=== PATIENT | male | born 2000 | race Caucasian/White ===

== ENCOUNTER 2021-07-24 09:34 | Outpatient (RCR) | payer OTHER, SELFPAY ==
--- NOTE | 2021-07-24 09:00 | BH.SGPN.GN ---
Behaviors/Verbalizations/Mental Status: []Pt alert and oriented, neatly dressed and groomed. Eye contact good. Motor activity appropriate. Speech within normal limits. Affect flat, mood depressed. Thoughts linear, logical, no signs of hallucinations or delusions. Pt's first day of PHP tx so pt completed the CSSR-S this morning. Client Response/Progress/Benefit: P[]Pt responded well to session, attentive, but quiet. Pt's first day of PHP tx and group offered pt supportive statements and encouragement. Pt reports feeling nervous this morning as it is his first experience with group. Pt shared he wants to work on dealing with depression and learning coping skills. Pt declined to share further, but appeared to benefit from meeting peers and learning more about the group setup. Pt will continue PHP tx to prevent decompensation, gain healthy coping skills, and maintain safety. Narrative Note: []
--- NOTE | 2021-07-24 10:10 | BH.SGPN.GN ---
Behaviors/Verbalizations/Mental Status: []Client alert and oriented, casually dressed and groomed. Eye contact fair to good. Motor activity appropriate. Speech within normal limits, quiet with limited input provided. Affect constricted, mood depressed, anxious. Thoughts linear, logical, no signs of hallucinations or delusions. Client Response/Progress/Benefit: []Client first day in PHP tx. Attentive, though remained passively engaged, taking notes and completed worksheet. Connected with discussion on crisis and how coping with external crises by using unhealthy coping skills could result in a personal crisis. Group reflected on the importance of having awareness of personal warning signs to prevent reaching crisis point. Group identified potential warning signs for crisis and client completed the personal warning signs worksheet. Client identified personal crisis warning signs to include: negative thoughts, apathy, and loss of interest. Client benefited by increasing awareness of what leads to crisis and personal warning signs. Client will continue PHP tx to prevent decompensation and maintain safety, increase understanding and use of healthy skills, as well as improve daily functioning. Narrative Note: []
--- NOTE | 2021-07-24 10:51 | BH.COMM ---
Communication Note - Communication with Client Communication Note: Pt completed initial paperwork and [place] Suicide Screener which he scored moderately severe. No active SI, plan, or intent. Protective factors. Future-oriented. Case discussed with Dr. Raya with plan to admit to [facility] with dx of F33.2
--- NOTE | 2021-07-24 11:10 | BH.SGPN.GN ---
Behaviors/Verbalizations/Mental Status: []Client alert and oriented, casually dressed and groomed. Eye contact fair. Motor activity restless. Speech within normal limits. Affect flat, mood depressed. Thoughts linear, logical, no signs of hallucinations or delusions. Client Response/Progress/Benefit: []Client mostly quiet during session, did show some engagement when in small groups. Client listened attentively to others and accepted feedback on strategies to add to his crisis plan. Connected as fellow participants discussed the importance of identifying and addressing personal warning signs. Client identified warning signs for crisis and gained further awareness of earliest warning signs. Client created a crisis action plan to help client better manage warning signs for crisis. Client?s action plan for loss of interest includes: pushing self to do things, stick to a routine, and try something new. Client appeared to benefit from creating a crisis action plan and increasing self-awareness. Client's first day in PHP. Client to continue PHP tx to maintain safety, improve daily functioning and prevent decompensation.
--- NOTE | 2021-07-24 11:40 | BH.MTP_ITS ---
Master Treatment Plan - Patient Information Program Physician:: Dr. Lia Mason Primary Therapist:: Latrice COTE - Psychiatric Diagnoses Psychiatric Diagnoses:: Major depressive disorder, recurrent, severe without psychosis; History of THC use disorder Diagnosis Code(s):: F 33.2 - Estimated LOS Estimated LOS (in weeks):: 1 Problem/Goal #1 - Problem/Goal #1 Stated Goal:: Pt will reduce suicidal ideations and learn how to manage depressive symptoms in healthy ways. Description of Barriers: Pt reports long-standing history of suicidal ideations and negative thoughts about himself. Pt has never done counseling in the past and medications have not been very effective for him. Pt does not currently find much alexi in anything. Functional Impact: Pt is a 21-year-old male with a history of MDD and cannabis use disorder. Pt referred to IOP by Amelie Odell and his mother following an episode of suicidal ideations with a plan to shoot himself in [place]. Pt denies any previous history of attempts, but reports having suicidal ideations since high school. Pt reports symptoms have been worsening over the past few months, but about six weeks ago, pt told his parents his medications were not working. Pt reports feeling like he is going through the motions and not finding any alexi in life. Pt endorses a depressed mood, anhedonia, hopelessness, worthlessness, and lack of energy. 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 Pt also endorses ruminations and feels like he is not good enough for his relationships. Goal Relevant Strengths/Supports: Pt has a very supportive family and girlfriend. Pt has no access to weapons and his parents removed all the guns from the home. Pt has outpatient psychiatry. - Objectives Objective #1 Stated Objective: Work with pt to develop a ?crisis plan? which includes emergency telephone numbers, 3-4 coping strategies for emotional distress, lists of supports, and motivations to live. Interventions: Therapist will provide list of crisis phone numbers. Therapist will work with client to identify motivations to live, warning signs, and effective coping strategies and steps to take in time of mental health crisis. Discharge Criteria: pt will have achieved this goal once pt completes safety p alli and is able to utilize coping and thought replacement strategies. Target Date: 08/01/21 Review Date: 08/01/21 Status: open Problem/Goal #2 - Problem/Goal #2 Stated Goal:: Reduce intensity and duration of anxiety and ruminations to improve overall functioning. Description of Barriers: Pt reports long-standing history of suicidal ideations and negative thoughts about himself. Pt has never done counseling in the past and medications have not been very effective for him. Pt does not currently find much alexi in anything. Functional Impact: Pt is a 21-year-old male with a history of MDD and cannabis use disorder. Pt referred to [facility] by Amelie Odell and his mother following an episode of suicidal ideations with a plan to shoot himself in his sleeping bag [place]. Pt denies any previous history of attempts, but reports having suicidal ideations since high school. Pt reports symptoms have been worsening over the past few months, but about six weeks ago, pt told his parents his medications were not working. Pt reports feeling like he is going through the motions and not finding any alexi in life. Pt endorses a depressed mood, anhedonia, hopelessness, worthlessness, and lack of energy. 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 Pt also endorses ruminations and feels like he is not good enough for his relationships. Goal Relevant Strengths/Supports: Pt has a very supportive family and girlfriend. Pt has no access to weapons and his parents removed all the guns from the home. Pt has outpatient psychiatry. - Objectives Objective #1 Stated Objective: pt will identify 2-3 cognitive distortions that lead to rumination and learn 2-3 ways to manage these thoughts to better manage anxiety Interventions: Therapist will provide education on the most common cognitive distortions and teach pt the connection between thoughts, emotions, and feelings. Therapist will assist pt in identifying, challenging, and replacing dysfunctional thoughts with positive, more realistic thoughts. Therapist will use CBT and DBT techniques to help pt gain awareness of thinking errors and learn how to more effectively handle negative thoughts. Therapist will also use self-compassion to help pt set more realistic expectations for himself. Discharge Criteria: Pt will have accomplished this goal when can identify at least 2 cognitive distortions and at least 2 coping skills to manage negative thoughts. Target Date: 08/01/21 Review Date: 08/01/21 Status: open
--- NOTE | 2021-07-24 11:41 | BH.PSA_ITS ---
Source of Information - Presenting Problems/Circumstances Problems, Referral Source, Mental Status, Client: Pt is a 21-year-old male with a history of MDD and cannabis use disorder. Pt referred to [facility] by [place] [id number] and his mother following an episode of suicidal ideations with a plan to shoot himself [place]. Pt denies any previous history of attempts, but reports having suicidal ideations since high school. Pt reports symptoms have been worsening over the past few months, but about six weeks ago, pt told his parents his medications were not working. Pt reports feeling like he is going through the motions and not finding any alexi in life. Pt endorses a depressed mood, anhedonia, hopelessness, worthlessness, and lack of energy. 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 Pt also endorses ruminations and fe els like he is not good enough for his relationships. Psychiatric Presentation - Psych Issues & Need for Admission Psychiatric Issues:: Major depressive disorder, recurrent, severe without psychosis; History of THC use disorder Past Psychiatric History - Treatment Hx Treatment History: No psychiatric admissions ever. No history of suicide attempts. No counseling ever but he has a psych PA who gives him his current meds. Pt reports he was first depressed in ninth grade but started feeling bad about himself in second grade after being diagnosed with dyslexia. He first took medications at age 19. He took Lexapro for 1 year but gained a lot of weight on it so stopped it. In April 2020 he went to [place] for 1 9 was given Prozac at 20 mg which was then increased eventually to 60 mg. It helped at first but then stopped. Pt does not like like taking medication per his report. First hospitalization:: n/a Most recent hospitalization:: n/a Medication Trials:: Yes - Lexapro- weight gain ECT Therapy:: No Age of first mental health symptoms: See tx history Describe (age, circumstance, etc) any past hospitalizations: n/a Current providers for mental health treatment (counselor, psychiatrist, classification case manager, etc.): Nikole Cordero (psych PA) at [id number]. No outpatient counselor at this time Development & Family of Origin - Childhood Significant Childhood Events: Pt was diagnosed with dyslexia when he was in 2nd grade. Pt reports his view about himself changed and he became depressed and negative towards himself. - Family Who currently lives in your home?: Pt lives with his parents Describe family composition:: Pt was born and raised in [place]. He describes his childhood as very good and loving. He denies any physical, verbal or sexual abuse ever. He has 2 older sisters. Pt is the youngest in the family and has a sister 3 years older than him and his sister 5 years older than him and he is close to the younger sister. - Family History Family Hx of Psychiatric or AOD Problems: Father has anxiety. Mother and one of his sisters have depression and anxiety. A second sister has OCD. There were 2 completed suicides in the family which were a maternal great uncle and another relative he is not sure the relation. His maternal grandfather was alcoholic but otherwise no substance issues in the family. Ethnicity - Culture Do you identify yourself with any particular cultural, ethnic background, or community?: No - Sexuality Sexual Orientation: Heterosexual Mental Status - Memory Recent Memory: Good Remote Memory: Good - Concentration Concentration: Good - Eye Contact Eye Contact: Good - Speech Speech: Soft - Thought Process Thought Process: Ruminations Insight: Fair Judgment: Fair Behavior: Anxious - Orientation Orientation: Time, Person, Place, Situation - Appearance Appearance: Appropriate - Mood Mood: Depressed - Affect Affect: Flattened Suicide Assessment - Suicidal Ideation Have you ever felt like hurting yourself?: Yes Please explain:: See presenting problem and psych evaluation Were you using ETOH/drugs at the time?: No Suicidal Intentional Rating Scale (SIRS): Current suicidal thoughts/No plan/Contracts for safety - He has passive thoughts that he would not care if he . In addition he has daily, fleeting suicidal ideation which occasionally last longer than fleeting according to the patient. He describes it as passive to almost active. Safety plan has been completed. Physician Notification: If Active suicidal thoughts/Will not contract for safety is checked, contact physician and document in the Physician Notification section below. Violent Behavior/Abuse History - Homicidal Ideation Do you have any homicidal thoughts? If so, explain:: No Is there a known potential victim? If yes, who:: No - Abuse Have you ever been abused?: No - Life Events Are there any other significant life events?: Hardships - Pt not sure what he wants to do for a career or what he wants in life. - Safety Do you ever feel threatened in your home? If yes, describe:: No Adult Social History - Age 18 to Present Describe your current support system:: Pt has his mother and girlfriend for primary support. Substance Use - Substance Substance Use Type: Alcohol, Marijuana, Tobacco, Caffeine - Specific Drugs What specific drugs have you used?: Non-smoker. He vapes nicotine daily. He first used marijuana in eighth grade and used it almost daily since the end of high school until 10 days ago when he stopped using marijuana. He uses alcohol 1-2 times a month. No rehab ever. 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 Do you have any learning disabilities?: Yes - Pt diagnosed with dyslexia in 2nd grade. 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 If yes, describe:: No - Court Orders Have you had any past court orders for psychiatric treatment?: No Do you have a present court order for psychiatric treatment?: No Problem Checklist - Current Problem Areas Problem List: Nutritional/Eating pattern changes, Depressed mood/sad, Substance use, Sleep problems, Pertinent health issues - He takes omeprazole, 1 hypertension med, methyl B12 supplement, and an [id number] allergy antihistamine. High blood pressure, GERD, hayfever allergy, history of appendectomy and wisdom teeth., Additional psychosocial stressors Discharge Planning Needs - Anticipated Follow-Up Mental Health Center (Name/Phone Number):: [id number] Private Therapist/Psychiatrist:: Nikole Cordero (psych PA) Release of Information Signed:: Yes Outpatient Scheduler's Assessment - Client's Needs What are the client's strengths?: Pt has a very supportive family and girlfriend. Pt has no access to weapons and his parents removed all the guns from the home. Pt has outpatient psychiatry. Diagnoses - Diagnoses Diagnosis #1:: Major depressive disorder, recurrent, severe without psychosis Diagnosis #2:: History of THC use disorder Interpretive Summary - Interpretive Summary Interpretive Summary: Pt is a 21-year-old single male who was referred to the [facility] behavioral health IOP program by his mother and [id number]. Records were reviewed and long email from his mother was reviewed to obtain this history besides the interview with pt. Pt has a girlfriend of 2 years who is supportive of him. He currently lives with his parents and he gets along well with them. For primary support he says he is not a talker but he thinks his girlfriend and parents are supportive of him. Pt recently had a plan to [place] himself [place] the [place] after going on a hike and was revealed this to his girlfriend who then told his mother. Pt's mother approached him and he admitted to his mother that he was suicidal and had the above plan. Pt is on medications for depression but feels they stopped working about 6 weeks ago. Pt has a history of dyslexia which was diagnosed in second grade and he feels that since that time he has felt that he was done and has felt bad about himself. Pt currently works at [employer] and has worked there for 6 years. 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 However pt is unsure of exactly what he wants to do with his life and he feels this is the greatest stress on him currently. He enjoys hiking, remodeling a camper and doing things with his girlfriend, but pt feels like he is just ?existing? and not enjoying life. According to his mother he is always willing to help neighbors and even strangers when needed. He has poor self-esteem. Patient denies any history of self-harm and all weapons have been removed from the home. He is not exercising much but does lift weights sometimes. He endorses feeling down and sad. He endorses hopelessness, worthlessness, some guilt, and apathy. His appetite is okay and his sleep is about 6 to 8 hours a night. Energy level is low but concentration is reasonably okay. He is a worrier by nature and ruminates negatively about himself constantly. He has passive thoughts that he would not care if he . In addition, he has daily, fleeting suicidal ideation which occasionally last longer than fleeting according to pt. He describes it as passive to almost active. He denies homicidal ideation, hallucinations, delusions or symptoms of phi ever. He also denies panic attacks, OCD, eating disorder, trauma or PTSD. Family history of depression, anxiety, OCD, eating disorder, and alcoholism. Pt denies using marijuana currently, but pt does have a history of THC use disorder. Treatment Plan Recommendations - Recommendations Guidelines: Special needs identified to be included in the development of an individualized treatment plan regarding past psychiatric history and treatment, developmental events, family relationships/events/culture, past and/or current educational, occupational, social, and residential experience, and legal status. Recommendations:: Pt will start the partial hospitalization program at [facility] as the structure, support, education, individual therapy and group therapy will hopefully prevent worsening of pt's symptoms which might require hospitalization. pt felt safe during the interview and if it anytime he does not feel safe he will agrees to let us know or go to the emergency room. The risk, options, possible complications and side effects of the medications were discussed with the patient and he understands and accepts these. pt was encouraged to continue to exercise on a regular basis and to continue to avoid any drug use or marijuana use. A TSH and vitamin D were ordered as the patient feels his last blood work was a year ago or more. Pt will need outpatient counseling when pt finishes treatment at [facility].
--- NOTE | 2021-07-24 13:36 | BH.MDN ---
Multi-Disciplinary Note - Note 45-min Individual Time Started:: 12:00 Date: 07/24/21 Purpose of session/treatment goals addressed:: To gather information on client's current stressors, symptoms, triggers, and tx goals. Another goal was to build rapport and complete a safety plan. Eye Contact:: Fair Motor Activity:: Appropriate Appearance:: Neat Speech:: Soft Mood:: Depressed Affect:: Flat Thoughts:: Linear, Logical, No evidence of hallucinations/delusions noted Staff Interventions:: psychoeducation on: - depression and maintenance cycles, rapport building, strengths perspective, treatment planning, completed risk assessment / safety planning Client Response:: Pt responded well to session, open to meeting with therapist. Pt shared the first day went okay. Pt stated he has never been in therapy before, so he was not sure what to expect. Pt sees a outpatient psychiatrist at [place] [id number] and his medication was recently changed. Pt identified his tx goals as being happy I guess but pt could not elaborate on what being happy looked like for him. Pt reports he currently feels like he is going through the motions and is not enjoying much of anything. Pt also admits to having negative thoughts of self and shared it is not helpful when his supports try to make me feel good about myself. Pt identifies his mother and girlfriend as primary supports. Pt receptive to learning about maintenance cycles and connected with the example depressive maintenance cycle therapist described. Pt willing to complete a safety plan that included pt's warning signs, negative thoughts, and coping strategies. Pt also had crisis prevent group today which helped pt further explore his warning signs and coping skills. Pt encouraged to share his plan with his supports. Risks/Concerns:: Pt denies any active SI, plan, or intent today (07/24/21). A week ago pt reports he had suicidal ideations with a plan to shoot himself in the [place]. Pt's family removed all guns from the house. Pt reports having SI since high school. Protective factors and pt is future oriented. Progress Toward Goals/Plan:: Pt's first day of PHP tx. Pt presents with a depressed mood, low energy, anhedonia, apathy, low self-esteem, and fleeting, passive SI. Pt stated he is a quiet person and does not talk much. Pt receptive during session and willing to complete a safety plan. Pt will continue PHP tx to prevent decompensation, maintain safety, and gain healthy coping skills. Time Stopped:: 12:40
--- NOTE | 2021-07-25 09:00 | BH.SGPN.GN ---
Behaviors/Verbalizations/Mental Status: []Pt alert and oriented, casually dressed and groomed. Eye contact good, motor activity appropriate, speech within normal limits. Affect, constricted. Mood, depressed and anxious. Thoughts linear, logical, no signs of hallucinations or delusions. Reviewed pt's daily symptom tracker, SI reported as a 2/5 with intent noted to be 1/5, this is is consistent with pt reported daily baseline. Denies plan and is scheduled to meet with individual therapist following group on this date. Client Response/Progress/Benefit: []Pt responded well to session, engaged and attentive throughout. Pt reports emotion of the day as ?interested, noting that this is his second day in the program. Shared not being sure of what to expect on his first day but was pleasantly surprised and glad he showed back up today. Client continues to remain mostly passive in participation, however was able to identify one mental health positive as passing the final for a course he is currently enrolled in. Pt reports he does not currently have any specific stressors. Appeared to benefit from support provided by group. Will continue tx to reinforce healthy coping skills, reduce distortions, as well as continue to maintain safety. Narrative Note: []
--- NOTE | 2021-07-25 10:10 | BH.SGPN.GN ---
Behaviors/Verbalizations/Mental Status: []Client alert and oriented, casually dressed and groomed. Eye contact fair. Motor activity appropriate. Speech within normal limits. Affect flat, mood depressed. Thoughts linear, logical, no signs of hallucinations or delusions. Client Response/Progress/Benefit: []Pt was an passive participant in group discussion, however appeared attentive to others comments. Attentive during psychoeducation. Group had an interactive discussion on the benefits of emotional regulation. Group identified several benefits to emotional regulation. Group also was able to identify how emotions can impact our communication leading to: using hurtful words, shutting down, feeling scattered and making assumptions. Pt elected to not participate in activity, however was attentive while others completed activity and processed it. Benefited from increased awareness into how emotions can impact one's ability to effectively communicate. Will continue PHP tx to improve daily functioning, maintain safety and prevent decompensation.
--- NOTE | 2021-07-25 11:10 | BH.SGPN.GN ---
Behaviors/Verbalizations/Mental Status: []Pt alert and oriented, neatly dressed and groomed. Eye contact good. Motor activity appropriate. Speech within normal limits. Affect constricted, mood depressed. Thoughts linear, logical, no signs of hallucinations or delusions. Client Response/Progress/Benefit: []Pt engaged in session AEB pt listening attentively to peers and providing input. Attentive during psychoeducation on 4 zones of regulation. Pt able to identify feelings and behaviors for each zone. Pt identified coping skills one can use to support self in each zone. Pt reported he is in the ?blue? zone today as he has low motivation, and he feels tired. Pt stated he does have a little bit of hope today. Pt reports he needs to get outside to help himself today. Benefited from increased education on zones of regulation or stages of alertness for emotions and healthy coping skills to use for each zone. Will continue PHP tx to prevent decompensation, reduce negative thinking, and maintain safety. Narrative Note: []
--- NOTE | 2021-07-25 14:06 | BH.MDN_ITS ---
Multi-Disciplinary Note - Note 30-min Individual Time Started:: 12:10 Date: 07/25/21 Purpose of session/treatment goals addressed:: To gain awareness of pt's cognitive distortions by reviewing the 10 most common distortions. Another goal was to assess risk and discuss what to expect for psychiatry tomorrow. Eye Contact:: Good Motor Activity:: Appropriate Appearance:: Neat Speech:: Soft Mood:: Anxious, Depressed Affect:: Congruent Thoughts:: Linear, Logical, No evidence of hallucinations/delusions noted Staff Interventions:: thought challenging, psychoeducation on: - depression and cognitive distortions, CBT techniques, rapport building, strengths perspective, other - gave homework to identify cognitive distortions he uses. Assessed for risk and SI Client Response:: Pt responded well to session, open to meeting with therapist. Pt's second day of PHP tx and he reports feeling more hopeful today. Pt continues to report daily SI, but denies any intent. Pt receptive to reviewing the CBT triangle and how thoughts, emotions, and behaviors all connect. Reviewed how one can change their mood through changing their behavior or challenging their thinking. Therapist and pt reviewed the 10 common cognitive distortions. Pt connected with personalizing, jumping to conclusions, disqualifying the positives, should and must, and black and white thinking. Pt shared he probably has used all of these, but some of them do not resonate as much. Discussed the importance of recognizing these distortions and getting off of negative autopilot. Pt willing to write down several distortions for homework and will begin a thought log with therapist. Risks/Concerns:: Pt continues to report daily SI that is fleeting and less severe today. Pt's parents still have the guns removed from the house. Pt denie s thoughts of using other methods and he reports ability to maintain safety. Future oriented and protective factors. Progress Toward Goals/Plan:: Pt's second day of PHP tx. Pt is mostly quiet, but he reports things are going okay in the program. No significant changes from yesterday, but pt reports being slightly more hopeful today. Pt continues to endorse a depressed mood, low self-esteem and self-confidence, negative thinking patterns, low motivation, anhedonia, and passive SI. Pt will continue PHP tx to prevent decompensation, maintain safety, and gain healthy coping skills. Time Stopped:: 12:35
--- NOTE | 2021-07-26 10:10 | BH.NA ---
Physical Data - Vital Signs Pulse Rate: 58 Blood Pressure: 133/87 - Height/Weight Height: 1.88 m Weight:: 99.79 kg Weight in Pounds: 220.0 lbs Current Medication Compliance - Medication Compliance Do you take your medication as prescribed?: Yes Nutritional History - Appetite Nutritional Instructions:: If client shows signs of a swallowing problem, weight change of 10 pounds or more in the last month, or is on a diabetic diet, the physician will review and request a dietitian consult, as appropriate. All unintentional weight loss will be referred to the physician for decision on need for dietitian consult. Describe your appetite:: Good - Client states he has recently lost a few lbs by intentionally eating healthier. Functional Assessment - Sleep Pattern Describe any problems with sleeping: Client states he feels his sleep is improving as he weans off of Prozac. - Activities Motor Activity:: Functional Sensory/Communication Assess - Communication Problems Do you have difficulty understanding what people are saying?: No Medical Problems/History - Cardiac Conditions Cardiovascular: Hypertension - Gastrointestinal Conditions Gastrointestinal: Other (See comments) - acid reflux - Musculoskeletal Conditions Musculoskeletal: Other (See comments) - client states he has a skin condition but does not have a flair up at this time - Pain Assessment Do you have acute or chronic pain?: No Surgical History - Surgical History Have you had any surgeries? If so, list type and date:: Yes - appendectomy Substance Abuse - Substance Abuse Please describe substance abuse in the last 30 days:: Client denies alcohol use now, but states he drink drink alcohol some in high school. Client states he vapes daily. Client states he previously was using marijuana daily, but states he uses it less than that now. Client states he drinks 1-2 cups of coffee per day. Mental Status Summary - Mental Status Significant Findings/Observations on Appearance and Mood:: Client is alert and oriented x 4. Client is casually groomed. Client's voice is somewhat soft but has normal rate. Client has flat affect. Client makes logical associations and normal processing. Client denies delusions/hallucinations. Client reports daily SI. Suicide Assessment - Suicidal Ideation Are you currently or have you been suicidal in the past?: Yes - daily fleeting SI Suicidal Intentional Rating Scale (SIRS): Current suicidal thoughts/No plan/Contracts for safety Physician Notification: If Active suicidal thoughts/Will not contract for safety is checked, contact physician and document in the Physician Notification section below. Assault History/Potential Past Psychiatric History - MH Treatment Hx Past Psychiatric Medications:: Rip Mancuso Age of first mental health symptoms: Client states he first started to feel depressed in high school and started taking medication for mental health about 2 years ago. Describe (age, circumstance, etc) any past hospitalizations: None Current providers for mental health treatment (counselor, psychiatrist, case loader operator, etc.): PA for psychiatry at [place] [id number] Fall Risk Assessment - Age Age: Less than 60 - Mental Status Mental Status: Willing & able to ask for assistance when needed - Physical Status Physical Status: No problems - Impairments Impairments: None - Elimination Elimination: Continent AND independent - Gait or Balance Gait or Balance: Walks independently - Hx of Falls History of falls in the past 6 months: No known history - Medications/Substances Psychotropics:: Antidepressants Others:: Antihypertensives Medications/substances used within the past 24 hours or ordered to administer: 1-2 of the medications/substances listed above - Total Score Total Points:: 1 RN Summary of Impressions - Impressions Recommendations: Include psychiatric and medical issues, treatment planning recommendations, and discharge planning needs. Impressions: Psychiatric Issues: 1. Major depressive disorder, recurrent, severe without psychosis. 2. History of THC use disorder - Level of Care How do the client's current symptoms and functional deficits support need for this level of care?: Client was referred to IOP by his outpatient psychiatrist. Client recently (07/17/21) had SI with intent and talked to his mom and girlfriend about it (which are his support system). Client had a plan to go into the [place] and shoot himself. Client reports that he is still having daily fleeting SI since then, and his plan would still be the same. Client lives with parents and parents have removed access to guns in the home. Client reports today his SI is slightly less. Client reports anhedonia and feeling like he doesn't know what to do with his life. PHP/IOP will promote gains and prevent further decompensation while providing social support and skills training.
[2021-07-26 11:32] VITALS: BP 133/87; PULSE 58
--- NOTE | 2021-07-26 13:04 | BH.PSY.EVA_ITS ---
Psychiatric Evaluation Initial Evaluation Initial Evaluation: History of Present Illness: [] The patient is a 21-year-old single male who was referred to the [facility] behavioral health IOP program by his mother and [facility] for 1 9. Records were reviewed and and long email from his mother was reviewed to obtain this history besides the interview with the patient. The patient has a girlfriend of 2 years who is supportive of him. He currently lives with his parents and he gets along well with them. For primary support he says he is not a talker but he thinks his girlfriend and parents are supportive of him. The patient recently had a plan to shoot himself to kill himself in the [place] after going on a hike and was revealed this to his girlfriend who then told his mother. The patient's mother approached him and he admitted to his mother that he was suicidal and had the above plan. The patient is on medications for depression but feels they stopped working about 6 weeks ago. The patient has a history of dyslexia which was diagnosed in second grade and he feels that since that time he has felt that he was done and has felt bad about himself. The patient currently works at [email or web address] and has worked there for 6 years. 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 However the patient is unsure of exactly what he wants to do with his life and he feels this is the greatest stress on him currently. He enjoys hiking, remodeling a camper and doing things with his girlfriend. According to his mother he is always willing to help neighbors and even strangers when needed. He has poor self- esteem. Patient denies any history of self-harm and all weapons have been removed from the home. Patient is not enjoying anything he does but he used to enjoy hiking and being outdoors. He is not exercising much but does lift weights sometimes. He endorses feeling down and sad. He endorses hopelessness, worthlessness, some guilt, and apathy. His appetite is okay and his sleep is about 6 to 8 hours a night. Energy level is low but concentration is reasonably okay. He is a worrier by nature and ruminates negatively about himself constantly. He has passive thoughts that he would not care if he . In addition he has daily, fleeting suicidal ideation which occasionally last longer than fleeting according to the patient. He describes it as passive to almost active. He denies homicidal ideation, hallucinations, delusions or symptoms of phi ever. He also denies panic attacks, OCD, eating disorder, trauma or PTSD. Current Psychiatric Medications: [] Prozac is being weaned and was decreased from 60 mg to 40 mg recently. He is supposed to decrease his Prozac to 20 mg tomorrow for 1 week and then discontinue it on about August 02, 2021. He started Pristiq 25 mg which he is supposed to take for about 5 days and then increase to 50 mg p.o. daily next week. Past Psychiatric History: [] No psychiatric admissions ever. No history of suicide attempts. No counseling ever but he has a psych PA who gives him his current meds. He was first depressed in ninth grade but started feeling bad ab out himself in second grade after being diagnosed with dyslexia. He first took medications at age 19. He took Lexapro for 1 year but gained a lot of weight on it so stopped it. In April 2020 he went to [place] for 1 9 was given Prozac at 20 mg which was then increased eventually to 60 mg. It helped at first but then stopped. The patient does not like like taking medication. Substance Use History: [] Non-smoker. He vapes nicotine daily. He first used marijuana in eighth grade and used it almost daily since the end of high school until 10 days ago when he stopped using marijuana. He uses alcohol 1-2 times a month. He tried a few other drugs in high school for about 2 months but none since high school. No rehab ever. Allergies: [] Augmentin Medications: [] He takes omeprazole, 1 hypertension med, methyl B12 supplement, and an [id number] allergy antihistamine. High blood pressure, GERD, hayfever allergy, history of appendectomy and wisdom teeth. He has normal sexual function and identifies as male and heterosexual. Past Medical History: [] See above after medications. Family Psychiatric History: [] Mother is 55 years old and father is 58 years old. Father has anxiety. Mother and one of his sisters have depression and anxiety. A second sister has OCD. There were 2 completed suicides in the family which were a maternal great uncle and another relative he is not sure the relation. His maternal grandfather was alcoholic but otherwise no substance issues in the family. Personal/Social History: [] The patient was born and raised in [facility]. He describes his childhood as very good and loving. He denies any physical, verbal or sexual abuse ever. He has 2 older sisters. The patient is the youngest in the family and has a sister 3 years older than him and his sister 5 years older to him than him and he is close to his youngest sister. He was diagnosed with dyslexia in second grade and this was very traumatic and embarrassing for him and he felt very isolated and he feels that this is when he began feeling horrible about himself. Due to the dyslexia he was on an IEP in school and had special classes and felt alone. 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 He did not enjoy school at all because of his learning disability and the fact that he was on an IEP. However he says that he did have friends and he played sports until ninth grade when he quit sports in order to work a job. He has a girlfriend for 2 years who is 20 years old and is very supportive of him. Legal History: [] No arrests. 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 No DUIs. Review of Systems: [] Negative except as noted in present illness. Vital Signs: [] Vital signs and exam reviewed and updated in the records and the nurses notes and the patient is deemed medically able to complete the [facility] program. Mental Status Examination: [] The patient is a tall fit looking 21-year-old male who appears normal for stated age and is seen without a mask and seen wearing a baseball cap. He is casually dressed and groomed with good hygiene. He has no psychomotor agitation or retardation. He is cooperative during the interview. Eye contact is good and speech is quiet but normal rate and rhythm and fluent with no pressure. Mood is depressed. Affect is flat. Thought process is goal- directed and organized. Thought content: There is evidence of passive thoughts of , fleeting suicidal ideation and passive to almost active suicidal ideation. There is no evidence of plan for suicide, homicidal ideation, hallucinations, delusions or symptoms of phi. Reality testing is intact. Intelligence is average or above average. Judgment is intact. Insight is limi titi but some present. Impulsivity is moderate. Diagnoses: [] 1. Major depressive disorder, recurrent, severe without psychosis 2. History of THC use disorder 3. Specific learning disability reading disorder 4. Career and work issues Plan: [] The patient will start the partial hospitalization program at [facility] as the structure, support, education, individual therapy and group therapy will hopefully prevent worsening of the patient's symptoms which might require hospitalization. The patient felt safe during the interview and if it anytime he does not feel safe he will agrees to let us know or go to the emergency room. The risk, options, possible complications and side effects of the medications were discussed with the patient and he understands and accepts these. No medication changes were made today and he will continue to wean and discontinue his Prozac and continue his Pristiq as ordered by his psychiatrist. He will continue to exercise on a regular basis. He will continue to avoid any drug use or marijuana use. A TSH and vitamin D were ordered as the patient feels his last blood work was a year ago or more. I will see the patient in follow-up in 1 week and he will continue to follow-up with his outpatient providers.
--- NOTE | 2021-07-26 13:18 | BH.DR.ITP ---
Initial Treatment Plan Patient Information Visit Information: ADMISSION DATE: EXPECTED LOS: 4-6 weeks Problems/Symptoms Problem #1:: Depression Symptom:: Sadness, apathy, hopelessness, worthlessness, guilt, anhedonia, low energy, passive thoughts of , passive suicidal ideation Problem #2:: Anxiety Symptom:: Worry, rumination
--- NOTE | 2021-07-26 15:40 | BH.MDN ---
Multi-Disciplinary Note - Note 30-min Individual Time Started:: 12:00 Date: 07/26/21 Purpose of session/treatment goals addressed:: To continue working on cognitive distortions from previous session and practicing cognitive restructuring. Another goal is to teach pt about core beliefs. Eye Contact:: Good Motor Activity:: Appropriate Appearance:: Neat Speech:: Soft Mood:: Dysthymic Affect:: Constricted Thoughts:: Linear, Logical, No evidence of hallucinations/delusions noted Staff Interventions:: thought challenging, psychoeducation on: - core beliefs and distortions, CBT techniques - practiced thought challenging, strengths perspective Client Response:: Pt responded well to session, open to meeting with therapist. Pt completed homework from previous session which was to identify cognitive distortions pt uses on a daily basis. Pt identified the following distortions I'm not enough, I'm a failure, I'm not happy with where I'm at in life, I should have accomplished more by now. Discussed the negative automatic thoughts versus core beliefs. Processed the thoughts pt identified and pt was asked follow up questions. Pt was asked to identify what thoughts he believes only some of the time, intellectually does not believe but emotionally does, and which thoughts he truly believes. Pt shared he only sometimes believes that he is a failure and that he is not good enough. Pt reported he gets frustrated because he logically knows that these thoughts are not true, but he cannot see a different perspective. Pt willing to practice cognitive restructuring during session uses several thought challenging techniques. Pt worked on using dialectical thinking to help pt see the horvath in his thoughts and he practiced looking at times when these thoughts were not true. Pt will work on reframing additional thoughts for homework. Risks/Concerns:: There is evidence of passive thoughts of , fleeting suicidal ideation and passive to almost active suicidal ideation per pt's report. There is no evidence of plan for suicide. Pt reports ability to maintain safety and pt has no access to weapons. Progress Toward Goals/Plan:: Pt is showing consistent attendance in PHP as well as completion of homework. Pt reports he is keeping an open-mind about therapy and shared that this experience is new and different. No significant changes in pt's symptoms since admission. Pt continues to report SI on a daily basis and reports negative core beliefs of self. Pt had blood work ordered to check his vitamin D levels and thyroid. Pt also encouraged by psychiatrist to start exercising again. Pt is quiet which makes it hard to gauge at times how much pt is getting from PHP. Will continue PHP tx to gain healthy coping skills, maintain safety, and reduce intensity and frequency of SI. Time Stopped:: 12:35
--- NOTE | 2021-07-27 09:10 | BH.SGPN.GN ---
Behaviors/Verbalizations/Mental Status: [] Eye contact is good. Motor activity is appropriate. Appearance is casual. Speech is Appropriate. Mood is depressed. Affect is flat. Thoughts are linear and logical. No evidence of psychosis. Reviewed daily check in sheet and pt reports 1/5 for suicidal thoughts and 1/5 for intent. This is improved from beginning of the week. Client Response/Progress/Benefit: [] Pt participated at times during the group discussion. Attentive. Daily symptom tracker notes 2/5 for depression and anger. Notes 1/5 for self-harm urges which is reduced from baseline as well. Emotion for today is hopeful. Mental health wins include I'm beginning to challenge my thoughts. Group discussed the benefits of not assuming that initial automatic thoughts are 100% true. I'm challenging the validity of my personal perceptions. Check-in was brief. Progress noted per pt report. Benefited from group support, encouragement, and feedback. Will continue in PHP to maintain safety, increase health coping, and improve functioning. Narrative Note: []
--- NOTE | 2021-07-27 10:10 | BH.SGPN.GN ---
Behaviors/Verbalizations/Mental Status: [] Eye contact is fair to good. Motor activity is appropriate. Appearance is casual. Speech is Appropriate. Mood is depressed. Affect is constricted. Thoughts are linear and logical. No evidence of psychosis. Client Response/Progress/Benefit: [] Pt was a passive participant in group discussion and activity. Attentive during psychoeducation on social stigma vs self-stigma. Pt was attentive to others during discussion on the question of What impacts how we define and view ourselves? Pt attentive as group identified several aspects that impact how we view ourselves which include; past experiences/exposure, our thoughts/current mental health state, our emotions, upbringing, and what other people tell us. Pt also participated in identifying examples of social stigma for mental health illness which included too sensitive, looking for attention, overly emotional, psycho, crazy, just an excuse, not working hard enough, lazy, mental health is not real, just a pessimist, and mental health can just be turned off. Pt chose to not share how stigma has impacted him. Benefited from increased awareness of how mental health stigma can impact individuals and treatment. Plan is to continue in PHP to maintain safety, increase healthy coping and prevent decompensation.
--- NOTE | 2021-07-27 11:15 | BH.SGPN.GN ---
Behaviors/Verbalizations/Mental Status: [] Client alert and oriented, casually dressed and groomed. Eye contact good. Motor activity appropriate. Speech within normal limits. Affect constricted, mood depressed. Thoughts linear, logical, no signs of hallucinations or delusions. Client Response/Progress/Benefit: [] Client did well to remain an attentive participant AEB client participating in the activity and listening attentively to others. Client does continue to struggle with active participation in group discussion however. Client appeared to connect with discussion challenging stigma by working on normalizing mental health and mental health tx. Group brainstormed strategies to combat social and perceived stigma in their own lives. Client shared one thing he can personally do to combat stigma is to practice thought challenging regarding his own mental health. Appeared to benefit from increasing awareness of strategies to combat stigma. Recommended continued PHP tx to improve daily functioning, increase healthy coping, reduce self-deprecation and use of distorted thinking patterns. Narrative Note: []
--- NOTE | 2021-07-27 14:26 | BH.MDN_ITS ---
Multi-Disciplinary Note - Note 30-min Individual Time Started:: 12:08 Date: 07/27/21 Purpose of session/treatment goals addressed:: To continue working on identifying distorted thought patterns that reinforce depression, hopelessness, and worthlessness. To introduce self-compassion and work on cognitive restructuring. Eye Contact:: Good Motor Activity:: Appropriate Appearance:: Neat Speech:: Soft Mood:: Dysthymic Affect:: Constricted - affect is improving, smiling more, but still constricted. Thoughts:: Linear, Logical, No evidence of hallucinations/delusions noted Staff Interventions:: thought challenging, psychoeducation on: - self-compassion and the three components of self-compassion, CBT techniques, strengths perspective, goal setting - Discussed setting a goal for exercising this weekend. Pt reports plans to hike or lift weights with his girlfriend, other - reviewed homework from last session. Client Response:: Pt responded well to session, open to meeting with therapist. Pt reports he did not write down his homework, but he did practice thought challenging. Pt shared challenging his negative self-talk seemed like bullshit as the reframed messages did not seem real. Therapist normalized this and discus sed how reframing distortions and creating new core beliefs takes time. Pt able to see the benefit of looking at his negative thoughts about himself as just thoughts and remind himself that just because he thinks something, does not make it a universal truth. Pt also learned about self-compassion and why this therapeutic technique can be helpful. Briefly reviewed the three components of self-compassion and pt was given a handout to read for homework. Pt also encouraged to set a goal for exercising which pt feels like he can do one day this weekend. 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 Pt's affect is improving and pt is joking more during individual sessions which is progress. Risks/Concerns:: Pt continues to endorse suicidal ideations, but denies any intent to act on these thoughts as of 07/27/21. Pt has no access to weapons. Pt reports his suicidal ideations are less intense than they were a week ago, but s till present. Pt is future oriented, but pt still has very distorted thoughts of self. No HI. No report of self-harm. Progress Toward Goals/Plan:: Pt continues to show consistent attendance and completion of his homework. Pt reports the drive to the program is challenging, but pt wants to continue PHP for a few more sessions. Pt continues to endorse a depressed mood, anhedonia, worthlessness, hopelessness, and SI. Pt does report that he has been trying to challenging his negative thoughts and he will get his blood work today. Progress noted in pt's self-report of reduced intensity of SI. Pt will continue PHP tx to prevent decompensation, further reduce intensity of suicidal ideations, and gain healthy coping skills. Time Stopped:: 12:30
--- NOTE | 2021-07-28 09:53 | BH.COMM ---
Communication Note - Communication with Client Communication Note: IOP group sessions were canceled for 07/28/21 due to low numbers. Pt was offered in person or a telehealth option for individual therapy today as pt is PHP. Pt did not want to drive an hour for an hour of treatment which is understandable. Pt also declined the telehealth session as pt has not found those beneficial in the past. Pt was not actively suicidal when he met with therapist on 07/27/21 and he was future oriented. Pt will meet with therapist and attend group on 07/31/21.
--- NOTE | 2021-07-31 09:00 | BH.SGPN.GN ---
Behaviors/Verbalizations/Mental Status: []Pt alert and oriented, casually dressed and groomed. Eye contact good. Motor activity appropriate. Speech within normal limits. Affect flat, mood depressed. Thoughts linear, logical, no signs of hallucinations or delusions. Reviewed pt?s symptom tracker, pt denies intent or plan. Pt reports 3/5 for thoughts of suicide. Will meet with individual therapist today. Client Response/Progress/Benefit: []Pt responded well to session, pt is quiet, but shares when prompted. Pt reports feeling tired this morning as pt worked before coming to group. Pt has a test today that he is stressed about, but he feels mostly prepared for this test. Pt's mental health wins included spending time hiking with his girlfriend over the weekend and making it to group today despite being tired. Pt is quiet, so it is hard to evaluate progress, but pt is consistent with attendance. Pt appears to benefit from connecting with peers and verbalizing his stressors. Pt will continue PHP tx to reduce suicidality, gain healthy coping skills, and improve daily functioning. Narrative Note: []
--- NOTE | 2021-07-31 10:00 | BH.SGPN.GN ---
Behaviors/Verbalizations/Mental Status: []Eye contact is fair to good. Motor activity is appropriate. Appearance is casual and grooming tended to. Speech is Appropriate, quiet with limited input provided. Mood is anxious and depressed. Affect is constricted. Thoughts are linear and logical. No evidence of psychosis Client Response/Progress/Benefit: []Pt receptive of session, attentive throughout AEB taking notes and nodding during examples provided in discussion. Pt continues to struggle with contributing during discussion and often remains a passive participant. Appeared to connect with group topic of cognitive distortions and the impact of thought patterns on mental health, coping behaviors, and relationships. Reflected that he personally tends to struggle with distortions of: ?jumping to conclusions?, ?disqualifying the positives?, and ?all or nothing thinking?. However, pt struggled to further expand upon how these distortions have impacted his mental health and functioning at present or in the past. Pt appeared to benefit from gaining insight on distorted thinking patterns and influence of distortions on maintaining unhealthy maintenance cycles. Progress remains limited as pt still new to treatment and struggles with active engagement in group. Recommended continued PHP treatment to maintain safety, improve sx management, provide psychoeducation on and promote healthy coping behaviors, as well as prevent decompensation. Narrative Note: []
--- NOTE | 2021-07-31 11:10 | BH.SGPN.GN ---
Behaviors/Verbalizations/Mental Status: []Client alert and oriented, casually dressed and groomed. Eye contact good. Motor activity appropriate. Speech within normal limits. Affect constricted, mood dysthymic. Thoughts linear, logical, no signs of hallucinations or delusions. Client Response/Progress/Benefit: []Pt engaged participant in Cognitive Distortions Jeopardy and utilized notes from psychoeducation on cognitive distortions to assist peers in correctly answering questions. Experiential activity was beneficial as it provided a way for pt to review notes and handouts during psychoeducation to answer questions about cognitive distortions. Patient stated he now realizes how frequently he uses these sort of thought patterns throughout his day and feels some relief to know he can do something to change the way he thinks. Pt was given a thought log to complete for homework. Will continue in [facility] tx to prevent decompensation, improve daily functioning, and combat distortions that reinforce depression.
--- NOTE | 2021-07-31 13:54 | BH.MDN ---
Multi-Disciplinary Note - Note 30-min Individual Time Started:: 12:05 Date: 07/31/21 Purpose of session/treatment goals addressed:: To utilize self-compassion to help pt reduce negative self-talk, challenge unrealistic expectations, and increase worth. Another goal was to discuss plan of care and IOP transition. Eye Contact:: Good Motor Activity:: Appropriate Appearance:: Neat Speech:: Soft Mood:: Dysthymic, Other - tired Affect:: Congruent Thoughts:: Linear, Logical, No evidence of hallucinations/delusions noted Staff Interventions:: thought challenging, mindfulness skills - practiced deep breathing and riding the wave., taught coping skills - Taught pt the 3 components of self-compassion and practiced using self-compassion, other - gave pt homework to practice the riding the wave strategy and to identify a past experience he can reflect on using self-compassion. Client Response:: Pt responded well to session, receptive to meeting with therapist. Pt reports feeling a little more depressed today, but he was unsure why. 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 Pt is slightly nervous about the exam. Pt stated his weekend was okay and he accomplished going for a hike with his girlfriend. Pt reports he enjoyed the hike. Pt completed his homework to read about self-compassion, and pt highlighted several things. Pt stated he is not used to talking to himself in kind ways, so reading about it seemed odd. Pt receptive to discuss with therapist on barriers to self-compassion, vulnerability, and riding the wave. Pt also practiced diaphragmic breathing which pt will practice while he practices riding the wave. Discussed how this can help with anxiety, anger, sadness, etc. Pt reflected on the development of his negative self-talk, which pt believes was when he was diagnosed with dyslexia. Pt willing to practice thought challenging using self-compassion and did an example with therapist. Pt will complete a personal example for homework. Risks/Concerns:: Pt reports having passive SI today with thoughts of I don't want to have to keep going and I have no worth. Pt denies any active SI, plan, or intent. Pt reports overall his SI is less intense than it was a week ago. Reports ability to maintain safety and if he cannot maintain safety, pt can reach out to support or call 911. Progress Toward Goals/Plan:: Pt continues to show consistent attendance and completion of his homework. Pt continues to endorse a depressed mood, anhedonia, worthlessness, hopelessness, and SI. Pt reports his SI is less intense and easier to control than it was a week and a half ago. Pt also states he is working on challenging his thoughts and he went hiking this weekend. Pt will do one more PHP day and then discharge to [facility] level of care. Talked to pt's mother and she said she is noticing mild progress at home. Pt will continue PHP tx to prevent decompensation, increase healthy coping skills, and improve self-worth. Time Stopped:: 12:37
--- NOTE | 2021-08-01 09:02 | BH.SGPN.GN ---
Behaviors/Verbalizations/Mental Status: []Eye contact is good. Motor activity is appropriate. Appearance is casual. Speech is Appropriate. Mood is dysthymic. Affect is slightly constricted. Thoughts are linear and logical. No evidence of psychosis. Reviewed daily check in sheet and no reports of suicidal ideations or intent. Client Response/Progress/Benefit: []Client responded well to session AEB client sharing thoughts/feelings with group and listening attentively to peers. Client reported positive as practicing thought challenging to help improve his mood. Client stated he is still struggling with thought challenging because at times he still believes it is ?bullshit?. Client receptive to feedback from other peers that negative self-talk takes time to challenge and see benefit from. Client reported additional mental health positive as using belly breathing to help manage his anxiety before a test yesterday. Client stated he believes it was helpful to practice his breathing. Client showing progress with decreased suicidality and increased awareness. Appeared to benefit from group support. Client is to discharge from [facility] today and we'll start IOP tomorrow. Narrative Note: []
--- NOTE | 2021-08-01 10:10 | BH.SGPN.GN ---
Behaviors/Verbalizations/Mental Status: []Client alert and oriented, casually dressed and groomed. Eye contact fair to good. Motor activity appropriate. Speech within normal limits, limited input provided. Affect constricted, mooddepressed. Thoughts linear, logical, no signs of hallucinations or delusions. Client Response/Progress/Benefit: []Client responded mostly well to session AEB taking notes and listening attentively to others. Continues to struggle with contributing to group discussion which may impede internalization of skills learned. Client was attentive throughout group discussion defining resilience and where resilience originates. Agreed with group that resilience can be both something you?re born with and something developed over time. Engaged throughout discussion on the mental health benefits of resiliency, nodding as fellow participants shared personal benefits of recognizing one?s own resilience. Clinician provided psychoeducation on the road to resilience and introduced how making connections with others can help build resilience. Client appeared to benefit from increased knowledge of resilience and mental health benefits of developing a resilient mindset. Client will d/c from PHP tx and drop down to IOP treatment level to continue to improve coping skill and thought challenging application, as well as prevent decompensation. Narrative Note: []
--- NOTE | 2021-08-01 14:24 | BH.MDN_ITS ---
Multi-Disciplinary Note - Note 45-min Individual Time Started:: 12:10 Date: 08/01/21 Purpose of session/treatment goals addressed:: To continue working on core beliefs, self-worth, and reducing negative self-talk. Another goal was to discuss discharging from [facility] level of care. Eye Contact:: Good Motor Activity:: Appropriate Appearance:: Neat Speech:: Appropriate, Soft Mood:: Other - content Affect:: Congruent - smiling Thoughts:: Linear, Logical, No evidence of hallucinations/delusions noted Staff Interventions:: thought challenging, CBT techniques, strengths perspective, goal setting Client Response:: Pt responded well to session, reports feeling better today. Pt shared he is feeling better today partially because he does not have plans for the rest of the day and he gets to rest. Pt also has been spending more time with his girlfriend who is home from college. Pt reports he practiced deep breathing and the ride the wave technique last night, but his test got cancelled. Discussed how it is helpful to practice even when not stressed. Pt receptive to working on homework from previous session which was to reframe a past experience using self-compassion. 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 Able to make the connection that his apathy was a cover for fear of failure and the vulnerability that comes with trying and failing. Pt connected with fear of failure and said he often does not apply himself because of this. Pt also feels like people do not really love him except for his parents. Explored core beliefs using the downward arrow technique. Pt increased awareness that his core beliefs center around not being good enough for relationships and a career. Practiced creating new core beliefs and pt wrote down some ideas. Pt is to practice collecting evidence for his new core beliefs for homework. Pt also encouraged to spend time outdoors and be active today and this week. Pt receptive and plans to go hiking later today. Risks/Concerns:: pt continues to report passive SI, but pt denies any active suicidal ideations, plan, or intent as of 08/01/21. Pt reports his SI has decreased in intensity and duration since his admission to [facility]. Pt is more hopeful, but still has very negative beliefs about himself. No HI. Progress Toward Goals/Plan:: Pt's functioning at home has improved and pt is reporting improvement in symptoms. Pt's SI has reduced in intensity. Pt has accomplished PHP treatment goals. Pt has been working on challenging distorted thought patterns, being physically active, and practicing calming skills. Pt reports PHP was out of my comfort zone but he found benefit to it. Pt continues to endorse depressive symptoms, but these have slightly reduced. Pt also continues to endorse severe negative core beliefs which he will continue to work on during individual therapy. Pt's sleep is poor, but mostly impacted due to his work schedule. Pt is finding some pleasure in doing things, but still reports anhedonia and lack of motivation. Pt no longer meets criteria for PHP level of care and will step down to IOP level of care starting 08/02/21. IOP will hopefully help prevent decompensation, improve mood stability, and reduce distorted thinking patterns. Time Stopped:: 12:50
--- NOTE | 2021-08-01 14:25 | BH.DS_ITS ---
Discharge Summary - Demographics Date of Admission:: 07/24/21 Discharge Date: 08/01/21 Presenting Problems at Admission:: Pt is a 21-year-old male with a history of MDD and cannabis use disorder. Pt referred to [facility] by Amelie Odell and his mother following an episode of suicidal ideations with a plan to shoot himself in his sleeping bag in the [place]. Pt denies any previous history of attempts, but reports having suicidal ideations since high school. Pt reports symptoms have been worsening over the past few months, but about six weeks ago, pt told his parents his medications were not working. Pt reports feeling like he is going through the motions and not finding any alexi in life. Pt endorses a depressed mood, anhedonia, hopelessness, worthlessness, and lack of energy. 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 Pt also endorses ruminations and feels like he is not good enough for his relationships Discharge Diagnoses:: Major depressive disorder, recurrent, severe without psychosis F33.2; History of THC use disorder Reason for Discharge:: Pt's functioning at home has improved and pt is reporting improvement in symptoms. Pt's SI has reduced in intensity. Pt has accomplished [facility] treatment goals. Pt no longer meets criteria for [facility] level of care. - Treatment Progress During Treatment & Response: Pt has made progress in PHP AEB his self- report of a more hopeful outlook, less SI, and reduced isolation at home. Pt has been engaged in group and individual therapy sessions and he is consistent with homework. Pt has good attendance as well. Pt is quiet during groups, but he takes notes and asks questions during individual sessions. Issues Still to be Addressed:: Pt continues to endorse very negative core beliefs about himself that impact his relationships and functioning. Pt is working on identifying these and creating more balanced core beliefs. Pt also continues to report passive suicidal ideations daily, but pt reports they are less severe than they were when he started. Pt can benefit from [facility] tx to further reduce SI, improve self-worth, and reduce negative self-talk. Discharge Recommendations/Instructions:: Pt will transition to [facility] level of care to promote gains made in PHP. Discharge Handout: Complete Discharge Handout with client on aftercare options and continuity of care.
== END 2021-08-01 15:07 | disposition home or self-care (01) ==
LOC: BHPHP 09:34
PROVIDERS: PCP Physician Assistant; Referring Provider Psychiatry & Neurology Psychiatry; Visit Provider Psychiatry & Neurology Psychiatry
DX: F33.2 Major depressive disorder, recurrent severe without psychotic features (principal); F12.99 Cannabis use, unspecified with unspecified cannabis-induced disorder; F81.0 Specific reading disorder; Z79.899 Other long term (current) drug therapy
CPT/HCPCS: H0035; 90832; 90834; G0410

== ENCOUNTER → 2021-07-31 | Outpatient (CLI) | payer OTHER, SELFPAY ==
[2021-07-31 13:58] LABS: Vitamin D,25 Hydroxy 18.2 ng/mL
[2021-07-31 14:55] LABS: Thyroid Stim Hormone (TSH) 2.49 uIU/mL (0.358-3.74)
== END | disposition home or self-care (01) ==
LOC: LAB 12:54
PROVIDERS: PCP Physician Assistant; Referring Provider Psychiatry & Neurology Psychiatry; Visit Provider Psychiatry & Neurology Psychiatry
DX: E55.9 Vitamin D deficiency, unspecified (principal)
CPT/HCPCS: 36415; 82306; 84443

== ENCOUNTER 2021-08-02 09:13 | Outpatient (RCR) | payer OTHER, SELFPAY ==
--- NOTE | 2021-08-02 09:00 | BH.SGPN.GN ---
Behaviors/Verbalizations/Mental Status: []Eye contact is good. Motor activity is appropriate. Appearance is casual. Speech is Appropriate. Mood is depressed. Affect is flat. Thoughts are linear and logical. No evidence of psychosis. Reviewed daily check in sheet and reports a 1/5, with 5 being severe, for suicidal ideation and a 1/5 for suicidal intent. This is below client's baseline. Does not appear to be imminent risk to harm self or others. Reports on symptom tracker his mood is better. Client Response/Progress/Benefit: [] Client responded well to session as evidenced by client sharing thoughts and feelings and appeared to be attentive to peers check-in. Client identified mental health positive as going on a hike yesterday. Client stated he was motivated to get outside and it felt good to start hiking again. Client stated additional mental health positive as attending IOP today despite feeling tired because he did not get enough sleep. Client identified current stressors as difficulty sleeping. Client stated he is continuing to use and practice thought challenging. Client seen a benefit from expressing thoughts and feelings. Client to continue IOP to improve view of self, increase utilization of healthy coping skills, and prevent decompensation. Narrative Note: []
--- NOTE | 2021-08-02 10:08 | BH.SGPN.GN ---
Behaviors/Verbalizations/Mental Status: []Client alert and oriented, casually dressed and groomed. Eye contact fair to good. Motor activity appropriate. Speech within normal limits, quiet with limited input provided. Affect constricted, mood depressed and anxious. Thoughts linear, logical, no signs of hallucinations or delusions. Client Response/Progress/Benefit: []Client responded well to session AEB listening attentively to others, taking notes, and providing some limited input when prompted throughout. This is some improvement as pt often struggled to provide any input to discussion. Client appeared to connect throughout group discussion defining pitfalls, AEB nodding, as well as psychoeducation on internal and external triggers to pitfalls. Client attentive as group worked to identify impact of pitfalls on mental health progress. Identified that skipping out on tx can ?end up making you feel worse because you aren?t really addressing what?s going on?. Client participated in experiential activity illustrating how easy it is to fall into pitfalls when we are unaware of them. Client aided group in problem solving throughout activity. Appeared to benefit from increased knowledge of pitfalls and their triggers. Will continue IOP treatment to improve use of healthy coping skills, prevent decompensation, and continue to work on challenging distorted thoughts. Narrative Note: []
--- NOTE | 2021-08-02 11:08 | BH.SGPN.GN ---
Behaviors/Verbalizations/Mental Status: []Pt alert and oriented, casual appearance. Eye contact good. Motor activity appropriate. Speech within normal limits. Affect constricted, mood mellow. Thoughts linear, logical, no signs of hallucinations or delusions. Client Response/Progress/Benefit: []Pt receptive of session, engaged throughout AEB pt actively listening and contributing to discussion, as well as taking notes. Pt completed worksheet identifying personal pitfalls impacting mental health progress. Pt identified the following pitfalls: self-sabotage, setting unrealistic expectations, procrastinating, not challenging negative thoughts, and being apathetic. Group learned different coping skills to help manage pitfalls. Pt selected the following coping skills to help with pitfalls: thought challenging, walking ,and listening to music. Pt reports wanting to work on managing his pitfalls by combatting negative self-talk and reminding himself of his positive qualities. Benefited from identifying personal pitfalls and strategies to overcome these pitfalls. Will continue IOP tx to reduce SI, improve daily functioning, and reduce negative self-talk to improve self-worth. Narrative Note: []
--- NOTE | 2021-08-02 11:51 | PCM.BH.PN ---
Progress Note Progress Note: In the history of Present Illness/Interim History: [] The patient is a 21-year-old male who is seen in follow-up at the [facility] behavioral health IOP program. I last saw the patient 1 week ago and at that time his antidepressant weaning and increasing the dose of the Pristiq was continued as planned. Patient feels he is benefiting from the IOP program and is learning valuable skills. Discussion with the treatment team and the patient reveals that the patient is ready to be downgraded from PHP to IOP this week. His mood is less depressed but he still has some depression. He has much less hopelessness. He tried hiking a few times and plans to do more of this as the weather improves. He still has some passive thoughts that he would not care if he . In addition he has fleeting suicidal ideation but it does not last as long as he used to and it is all passive. He denies homicidal ideation, hallucinations, delusions. Current Psychiatric Medications: [] Prozac will be discontinued tomorrow as planned from by his outpatient medication provider. The patient increased his Pristiq to 50 mg p.o. daily about 5 days ago and is tolerating it well. Mental Status Examination: [] Patient is a 21-year-old male who appears normal for stated age and is casually dressed and groomed with good hygiene. He has no psychomotor agitation or retardation. He is cooperative during the interview. Eye contact is good and speech is normal rate and rhythm and fluent with no pressure. Mood is depressed. Affect is constricted but not flat. Thought process is goal-directed and organized. Thought content: There is still evidence of passive thoughts of and occasional fleeting,'s passive suicidal ideation. There is no evidence of plan for suicide, active suicidal ideation, homicidal ideation, hallucinations or delusions. Reality testing is intact. Judgment is intact. Insight is limited but improving. Impulsivity is moderate. Diagnoses: [] 1. Major depressive disorder, recurrent, severe without psychosis 2. History of marijuana use disorder 3. Specific learning disability reading disorder 4. Career and work issues Plan: [] The patient will continue the IOP program and will be readmitted to the IOP program and discharged from the PHP program at [facility] as the structure, support, education, individual and group therapy will hopefully prevent worsening of the patient's symptoms which might require hospitalization. The patient felt safe during the interview and if it anytime he does not feel safe he will let us know or go to the emergency room. The risks, options, possible complications and side effects of the medications were again discussed with the patient and he understands and accepts these. No other medication changes were made today. He will continue to exercise by walking on a regular basis and will continue to avoid any drug use. The patient's labs were reviewed with him and his vitamin D level was low so he will agrees to take vitamin D replacement for several months. TSH was normal. I will see the patient in follow-up in 2 weeks and he will continue to follow-up with his outpatient providers. A prescription was sent in for vitamin D2 50,000 IUs p.o. once a week for 3 months.
--- NOTE | 2021-08-02 13:45 | BH.MTP_ITS ---
[facility] Treatment Plan - Patient Information Program Physician:: Dr. Lia Mason Primary Therapist:: Latrice COTE - Psychiatric Diagnoses Psychiatric Diagnoses:: Major depressive disorder, recurrent, severe without psychosis F33.2; History of Cannabis use disorder Diagnosis Code(s):: F 33.2 - Estimated LOS Estimated LOS (in weeks):: 6 Problem/Goal #1 - Problem/Goal #1 Stated Goal:: Client will decrease depressive symptoms, guilt, anhedonia, and further reduce SI due to major depression disorder. Description of Barriers: Pt reports long-standing history of suicidal ideations and negative core beliefs. Pt has never done counseling in the past and medications have not been very effective for him. Pt does not currently find much alexi in anything. Pt drives an hour to get to [facility] and gas prices are high which could impact retention. Functional Impact: Pt is a 21-year-old male with a history of MDD and cannabis use disorder. Pt referred to [facility] by Amelie Odell and his mother following an episode of suicidal ideations with a plan to shoot himself in his sleeping bag in the [place]. Pt denies any previous history of attempts, but reports having suicidal ideations since high school. Pt reports symptoms have been worsening over the past few months, but about six weeks ago, pt told his parents his medications were not working. Pt reports feeling like he is going through the motions and not finding any alexi in life. Pt endorses a depressed mood, anhedonia, hopeles sness, worthlessness, and lack of energy. 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 Pt also endorses ruminations and feels like he is not good enough for his relationships. Goal Relevant Strengths/Supports: Pt has a very supportive family and girlfriend. Pt has no access to weapons and his parents removed all the guns from the home. Pt has outpatient psychiatry and he recently completed PHP and saw progress in reduced SI. - Objectives Objective #1 Stated Objective: pt will learn and utilize 2-3 healthy coping strategies to better manage depressive symptoms as shown by a reduced DSM-5 scores for depression. Interventions: Through group and individual sessions, therapist will help pt identify triggers and warning signs of depression and emotional dysregulation including emotional, physical, and behavioral changes. Therapist will teach pt various coping skills to manage symptoms and give pt tangible resources to use to regulate emotions. Therapist will use cognitive restructuring techniques and help pt gain awareness of negative thoughts that reinforce guilt and depression. Therapist will provide psychoeducation on maintenance cycles and help pt learn ways to break unhealthy maintenance cycles. Therapist will help pt incorporate behavioral activation and assist pt in setting SMART goals. Discharge Criteria: Pt will have met this goal when can report learning and usin g at least 2 coping skills to manage depressive symptoms. Additionally, pt will have met this goal when depressive symptoms have reduced on the DSM-5 scale. Target Date: 09/13/21 Review Date: 08/23/21 Status: open Objective #2 Stated Objective: Pt will identify at least 2-3 negative self-talk messages used to reinforce negative core beliefs and replace thoughts with positive, realistic messages. Interventions: therapist will help pt identify distorted, negative beliefs about self and replace with more realistic, affirmative messages. Therapist will use CBT to help pt increase insight to the connection between thoughts, emotions, and behaviors. Therapist will encourage pt to practice thought challenging and teach pt self-compassion strategies. Discharge Criteria: Pt will have achieved this goal when can verbalize at least 2 negative self-talk messages and effectively replace those thoughts with affirmative, realistic messages. Target Date: 09/13/21 Review Date: 08/23/21 Status: open Problem/Goal #2 - Problem/Goal #2 Stated Goal:: Pt will reduce anxiety symptoms and rumination while increasing ability to function on daily basis. Description of Barriers: Pt reports long-standing history of suicidal ideations and negative core beliefs. Pt has never done counseling in the past and medications have not been very effective for him. Pt does not currently find much alexi in anything. Pt drives an hour to get to [facility] and gas prices are high which could impact retention. Functional Impact: Pt is a 21-year-old male with a history of MDD and cannabis use disorder. Pt referred to [facility] by Amelie Odell and his mother following an episode of suicidal ideations with a plan to shoot himself in his sleeping bag in the [place]. Pt denies any previous history of attempts, but reports having suicidal ideations since high school. Pt reports symptoms have been worsening over the past few months, but about six weeks ago, pt told his parents his medications were not working. Pt reports feeling like he is going through the motions and not finding any alexi in life. Pt endorses a depressed mood, anhedonia, hopelessness, worthlessness, and lack of energy. 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 Pt also endorses ruminations and feels like he is not good enough for his relationships. Goal Relevant Strengths/Supports: Pt has a very supportive family and girlfriend. Pt has no access to weapons and his parents removed all the guns from the home. Pt has outpatient psychiatry and he recently completed PHP and saw progress in reduced SI. - Objectives Objective #1 Stated Objective: pt will identify 2-3 anxiety triggers and 2 calming coping skills to reduce anxiety as shown by decreased DSM-5 cross cutting symptom measure scores. Interventions: Therapist will help pt increase awareness of anxiety triggers and avoidance behaviors. Therapist will teach pt various calming and mindfulness strategies to promote emotional regulation and reduction of anxiety. Therapist will encourage pt to implement healthy coping skills on a regular basis and increase self-care in all areas. Discharge Criteria: pt will have accomplished this goal when can report at least 2 triggers for anxiety and 2 calming strategies to manage symptoms. Additionall y, pt will have accomplished this goal when pt can report reduced DSM-5 cross cutting symptoms for anxiety. Target Date: 09/13/21 Review Date: 08/23/21 Status: open Objective #2 Stated Objective: pt will identify 2-3 cognitive distortions that lead to rumination and learn 2-3 ways to manage these thoughts to better manage anxiety Interventions: Therapist will provide education on the most common cognitive distortions and teach pt the connection between thoughts, emotions, and feelings. Therapist will assist pt in identifying, challenging, and replacing dysfunctional thoughts with positive, more realistic thoughts. Therapist will use CBT and DBT techniques to help pt gain awareness of thinking errors and learn how to more effectively handle negative thoughts. Therapist will also use self-compassion to help pt set more realistic expectations for himself Discharge Criteria: Pt will have accomplished this goal when can identify at least 2 cognitive distortions and at least 2 coping skills to manage negative thoughts. Target Date: 09/13/21 Review Date: 08/23/21 Status: open
--- NOTE | 2021-08-02 13:46 | BH.PSA ---
Suicide Assessment Treatment Plan Recommendations
--- NOTE | 2021-08-02 13:46 | BH.PSA_ITS ---
Suicide Assessment Treatment Plan Recommendations
--- NOTE | 2021-08-07 09:10 | BH.SGPN.GN ---
Behaviors/Verbalizations/Mental Status: [] Eye contact is good. Motor activity is appropriate. Appearance is casual. Speech is Appropriate. Mood is anxious. Affect is congruent. Thoughts are linear and logical. No evidence of psychosis. Reviewed daily check in sheet and pt reports 1/5 for suicidal thoughts and 1/5 for intent. This is noted to be pt's baseline. Client Response/Progress/Benefit: [] Pt participated at times during discussion on CBT techniques. Attentive. Emotion for today is tired. Symptom tracker notes 3/5 for depression, 2/5 for anxiety and 1/5 for anger. Mental health wins include going on a hike this weekend and challenging core beliefs. He was asked by group to further explain core beliefs which he did. Admits to struggling at times to challenge negative beliefs b/c I thought that way for so long. Reports that its awkward and feels stupid at times. Group reframed these thoughts and discussed the important of training the brain to reframe negative thoughts. Even decreasing negative thoughts brought on by core beliefs by 5% can make big impact. Stressor is that he has to take a test this afternoon. Reports being apathetic towards the test If I pass I pass Group provided some on their thoughts and strategies on test anxiety. Benefited from group support, encouragement, and feedback. Will continue in IOP to prevent decompensation, increase healthy coping, and maintain safety. Narrative Note: []
--- NOTE | 2021-08-07 10:05 | BH.SGPN.GN ---
Behaviors/Verbalizations/Mental Status: []Client alert and oriented, casually dressed and grooming appears tended to. Eye contact good. Motor activity appropriate. Speech within normal limits, limited input provided. Affect constricted, mood anxious and depressed. Thoughts linear, logical, no signs of hallucinations or delusions. Client Response/Progress/Benefit: []Pt did well to remain engaged throughout AEB taking notes and listening attentively throughout, continues to struggle with providing input and reflection during group discussion. Attentive during psychoeducation reviewing the importance of goal-setting. Pt nodded in agreement as group discussed that goals can provide a sense of purpose and something to work towards. Group identified potential benefits of having goals to include: they motivate, increase self-confidence, provide a sense of accomplishment, help improve relationships, and provide a sense of purpose. Group also worked together to identify barriers to goal-setting which included; fear of failure, lack of motivation/procrastination, depression, and lack of support from others. Pt declined to share the personal barriers preventing him from setting and working towards goals in the past. Continued difficulties with providing input and personal reflection may impede progress in tx. Benefited from increased awareness of benefits and barriers to goal-setting. Pt will continue in IOP to prevent decompensation, increase healthy coping and depression management skills, as well as further improve daily functioning. Narrative Note: []
--- NOTE | 2021-08-07 16:17 | BH.MDN ---
Multi-Disciplinary Note - Note 30-min Individual Time Started:: 11:25 Date: 08/07/21 Purpose of session/treatment goals addressed:: Reviewed current symptoms and progress in IOP. Addressed treatment plan goal 1. 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 Ruminating on the test as well as his future. Unsure what his career and work goals are. We processed his thoughts on this topic and allowed him to vent frustrations. Insight that while a job/career is important a majority of his happiness and self-worth come from events, experiences, relationships, and interactions outside of work. We worked to normalize his apprehension and fear about making a decision and perhaps changing his mind in the future. He reports small progress in IOP as he is trying to utilize CBT techniques such as challenging thoughts however finds in silly at times. Open to discussion on the impact that reframing 5-10% of thoughts which was originally brought up in 1st group today, could have on his overall mental health. Role-payed and gave examples of reframing negative thoughts to more realistic thoughts. Risks/Concerns:: Pt's daily symptoms tracker notes 1/5 for suicidal thoughts and 1/5 for intent which has been baseline for pt since entering program and pt agrees. He denies any active SI, plan, or intent. Future-oriented. Protective factors. Does not present in any distress or imminent risk to himself. Progress Toward Goals/Plan:: Progress noted. Pt reports benefit from IOP programs however admits that group counseling is very outside his comfort zone. Limited engaged in groups however reports that he is absorbing information and is gaining education and insight. Will continue in IOP to maintain safety, increase healthy coping, and prevent decompensation. Time Stopped:: 11:45
--- NOTE | 2021-08-09 09:00 | BH.SGPN.GN ---
Behaviors/Verbalizations/Mental Status: [] Eye contact is good. Motor activity is appropriate. Appearance is casual. Speech is Appropriate. Mood is euthymic. Affect is constricted. Thoughts are linear and logical. No evidence of psychosis. Reviewed daily check in sheet and no reports of suicidal ideations or intent. Client Response/Progress/Benefit: [] Pt was an active participant in group discussion. Attentive. Provided appropriate feedback. 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 Pt identified additional mental health win as having an improved mood and improved thought patterns. Pt stated he is starting to believe he has space in this world which is something he hasn't believed in a long time. Identified skills he has been using as getting outside, hiking, and thought challenge. Pt stated current stressor is still not knowing what he wants to do for his career/future. Pt reported he has many certifications but doesn't' know if that's what he wants to do. Emotion is lively. Benefited from group support, encouragement, and feedback. Will continue in IOP to continue use of healthy coping, improve view of self and prevent decompensation.
--- NOTE | 2021-08-09 10:07 | BH.SGPN.GN ---
Behaviors/Verbalizations/Mental Status: []Pt alert and oriented, casually dressed and groomed. Eye contact good. Motor activity appropriate. Speech within normal limits. Affect constricted, mood anxious and dysthymic. Thoughts linear, logical, no signs of hallucinations or delusions. Client Response/Progress/Benefit: []Pt responded well to session, attentive and participating in activity, though remained mostly passive throughout discussion. Continues to struggle with contributing throughout group discussions which may impede progress and continue to reinforce social anxiety. Pt nodding in connection to discussion on what fear of failure means and what contributes to the development of fear of failure. Group shared that the fear of failure can lead to isolation, self-sabotage, pushing people away, over-committing oneself, avoidance, and not asking for help. Pt expressed agreement that fear of failure can keep you from reaching goals or trying in the first place. Pt appeared to benefit from gaining awareness of the impact fear of failure can have on one?s mental health and wellbeing. Will continue IOP tx to increase engagement and reduce social anxiety, improve mood stability, and increase daily functioning. Narrative Note: []
--- NOTE | 2021-08-09 11:08 | BH.SGPN.GN ---
Behaviors/Verbalizations/Mental Status: []Pt alert and oriented, casually dressed and groomed. Eye contact good. Motor activity appropriate. Speech within normal limits. Affect constricted, mood mellow. Thoughts linear, logical, no signs of hallucinations or delusions. Client Response/Progress/Benefit: []Pt responded well to session, engaged in the experiential activity and attentive throughout group processing. Pt reported fear of failure has kept pt from furthering education to the level he would like and getting help. Pt completed fear of failure worksheet and was able to identify thoughts and behaviors that reinforce personal fear of failure including poor self-worth, all or nothing expectations, minimizing the positives, and fear of letting others down. Pt participated in small group discussion regarding strategies to overcome fear of failure. Identified wanting to work on using opposite action and self-compassion. Appeared to benefit from increased knowledge of strategies to combat fear of failure and gaining self-awareness. Pt will continue IOP tx to reduce negative thinking patterns, improve self-worth, and increase self-care. Narrative Note: []
--- NOTE | 2021-08-14 09:01 | BH.SGPN.GN ---
Behaviors/Verbalizations/Mental Status: [] Eye contact is fair. Motor activity is appropriate. Appearance is casual. Speech is Appropriate. Mood is euthymic, slightly anxious. Affect is congruent. Thoughts are linear and logical. No evidence of psychosis. Reviewed daily check in sheet and no reports of suicidal ideations or intent. Client Response/Progress/Benefit: [] Pt was an active participant in group discussion. Attentive. Provided appropriate feedback. Pt reported mental health positive as making it to his fourth week in IOP. Pt stated he feels accomplished for staying with IOP. Pt identified additional mental health positive as still feeling more hopeful about his life and future. Pt reported he did not think four weeks ago that he would ever feel hopeful/optimistic. Pt reported using thought challenge has been helpful in improving his perspective and mood. Benefited from group support, encouragement, and feedback. Will continue in IOP to continue use of healthy coping skills, increase confidence and prevent decompensation.
--- NOTE | 2021-08-14 11:10 | BH.SGPN.GN ---
Behaviors/Verbalizations/Mental Status: []Client alert and oriented, casually dressed and groomed. Eye contact good. Motor activity appropriate. Speech within normal limits. Affect constricted, mood euthymic. Thoughts linear, logical, no signs of hallucinations or delusions. Client Response/Progress/Benefit: []Pt responded well to session AEB taking notes and providing input and examples throughout. Group discussed the different categories of coping skills which included distraction, emotional release, grounding, self-love, and thought challenging. Pt created a coping skill menu identifying various skills to try in each category. Pt?s coping skill menu included: engaging in hobbies, exercising, learning a new skill, reducing over-apologizing, and looking at the evidence against his negative thoughts. Appeared to benefit from increasing repertoire of healthy coping skills. Pt reports feeling more hopeful each week, but pt continues to struggle with negative self-talk. Pt will continue IOP tx to improve self-worth, reduce distortions, and improve mood stability. Narrative Note: []
--- NOTE | 2021-08-16 09:00 | BH.SGPN.GN ---
Behaviors/Verbalizations/Mental Status: []Pt alert and oriented, neatly dressed and groomed. Eye contact good. Motor activity appropriate. Speech within normal limits. Affect congruent, mood euthymic. Thoughts linear, logical, no signs of hallucinations or delusions. Reviewed pt?s symptom tracker, no risk for suicidal ideation, plan, or intent as of 08/16/21 Client Response/Progress/Benefit: []Pt responded well to session, attentive and engaged. Pt reports feeling excited and tired this morning and that pt does not have any stressors. Pt shared overall his mood and outlook on life has been much improved since starting IOP. Pt reports he has been working on catching his distorted thoughts and challenging his perspective. Pt has been gardening, hiking, and spending time with friends. Pt is looking forward to going on vacation soon. Pt appeared to benefit from reflecting on his personal growth. Pt will continue IOP tx to promote gains, further combat distortions, and establish aftercare. Narrative Note: []
--- NOTE | 2021-08-16 14:02 | BH.MDN_ITS ---
Multi-Disciplinary Note - Note 45-min Individual Time Started:: 11:00 Date: 08/16/21 Purpose of session/treatment goals addressed:: To work on goal #1 of pt's tx plan, review homework, and review progress made in IOP at time of review. Eye Contact:: Good Motor Activity:: Appropriate Appearance:: Neat Speech:: Appropriate Mood:: Euthymic Affect:: Full - smiling Thoughts:: Linear, Logical, No evidence of hallucinations/delusions noted Staff Interventions:: CBT techniques, discharge planning - discussed options for outpatient counseling and IOP aftercare., reviewed DSM-5, goal setting, other - pt asked to discuss aftercare options with his mother. Client Response:: Pt responded well to session, open to meeting with therapist. Pt shared he is overall doing better and he feels like he is progressing. Pt reports having less negative thinking and much less SI. Pt is enjoying more things and getting better sleep. Pt was joking and talking more in session than previous sessions. Pt completed his homework on core beliefs. Pt wants to develop more balanced core beliefs and he shared giving himself credit for even the small things has been helpful. Pt shared there are still times where the positive self-talk feels fake but pt is getting better at catching and combatting distortions. Discussed plan of care based on progress pt is making. Pt and therapist agreed that pt should be ready to discharge from IOP tx in th ree weeks as long as progress maintains. Pt needs outpatient therapy and was given options. Pt wants to think about these options as well as if he wants to do aftercare. Pt will continue to practice positive self-talk and he wants to start journaling. Risks/Concerns:: Pt denies any suicidal ideations, plan, or intent as of 08/16/21. Pt reports he is feeling much better and has less negative thoughts of himself. Progress Toward Goals/Plan:: Pt is making progress towards tx goals AEB pt's self-report of doing better and feeling better. Pt shared his sleep and mood have improved and pt is much less negative in his thinking. Pt's affect has brightened and pt is more talkative in sessions. Pt continues to have negative core beliefs, which is to be expected, but pt is actively practicing positive self-talk and thought challenging. Pt has worries about the future and his career plans. Pt has medication management through [id number], but pt still needs outpatient counseling. Pt will continue IOP tx to promote gains, improve self- esteem and confidence, and establish aftercare. Time Stopped:: 11:48
--- NOTE | 2021-08-16 14:13 | BH.MTP_ITS ---
Treatment Plan Review Date of Admission:: 08/02/21 Date of Treatment Plan Review:: 08/14/21 Admitting Diagnoses:: Major depressive disorder, recurrent, severe without psychosis F33.2; History of Cannabis use disorder Current Diagnoses:: Major depressive disorder, recurrent, severe without psychosis F33.2; History of Cannabis use disorder Patient's Response to Treatment:: Pt has responded well to treatment AEB pt consistently attending IOP sessions and his reduction of DSM-5 scores by 38% since [facility] admission. Pt contributes well during individual sessions and takes notes during group sessions. Pt is still quiet in group, but he is smiling more and joking with peers and facilitators which is a change from admission. Pt applies coping skills outside of IOP and reports overall his mood is improved and he is doing better at catching negative thought patterns. Status of Current Problems and Symptoms: Pt's symptoms of depression and anxiety are resolving, but there are still issues ongoing. Pt has been learning about cognitive distortions and this has increased pt's insight to the guilt, negative core beliefs, and fear of failure. Pt also continues to work on challenging negative self-talk, and ruminations. Pt's SI has decreased by 67% since admission per the DSM-5, but pt still reports passive SI on occasion. Problem #1 Problem Name:: Depression, guilt, negative self-talk, SI Status of Goals:: Objective 1- complete with ongoing progress encouraged. Pt can identify numerous coping skills to help manage depression including opposite action, hiking, and challenging negative thoughts. Pt?s symptoms have decreased by 43% since admission, but pt still reports passive SI on occasion. Objective 2- in progress. Pt is working on identifying distortions and negative core beliefs. Pt reports he can more easily challenge negative self-talk and he is less harsh on himself. However, pt still struggles with compliments and giving himself credit. Team Recommendations:: Treatment team recommends pt continue working on combatting distortions that reinforce guilt and depression. Also encourage pt to continue working on strengthening more realistic, kinder core beliefs of self. Pt and therapist working on getting an outpatient counselor. Problem #2 Problem Name:: Anxiety, rumination, and avoidance Status of Goals:: Objective 1-complete and encouraged to work on stress management. Pt?s DSM-5 scores for anxiety decreased by 67% since [facility] admission. Pt reports he is able to manage stress better, but pt can continue to work on self-care and work-life balance. Objective 2- complete, ongoing work encouraged. Pt can identify various distortions that lead to rumination and pt is working on thought challenging on a consistent basis. Team Recommendations:: Treatment team recommends that pt continue working on self-care and creating a work-life balance. Pt reports in the past he has let self-care become less of a priority which impacts pt's self-worth and stress.
--- NOTE | 2021-08-18 09:02 | BH.SGPN.GN ---
Behaviors/Verbalizations/Mental Status: []Eye contact is good. Motor activity is appropriate. Appearance is casual. Speech is Appropriate. Mood is anxious. Affect is constricted. Thoughts are linear and logical. No evidence of psychosis. Reviewed daily check in sheet and no reports of suicidal ideations or intent. Client Response/Progress/Benefit: []Pt responded well to session, engaged and attentive, though struggles with providing input throughout. Pt reports feeling ?dull? this morning as he is tired and not looking forward to working this afternoon. Pt did well however to identify current mental health wins which included coming to IOP tx rather than sleeping in as he had been tempted to do and reflecting on progress. Pt noted that he is seeing progress most in his improved mood and reduced negative thinking patterns. Reports feeling more confident and less anxious as a result. Shared utilizing skills of talking to healthy supports and getting back into activities he enjoys as being helpful. Appeared to benefit from reflecting on skills he has used in managing his depression and anxiety, as well as supportive feedback provided by group. Will continue IOP tx to reinforce healthy coping skills and promote mood stability, as well as continue to encourage self-care to prevent decompensation. Narrative Note: []
== END 2021-08-22 23:59 ==
LOC: BHIOP 09:13
PROVIDERS: PCP Physician Assistant; Referring Provider Psychiatry & Neurology Psychiatry; Visit Provider Psychiatry & Neurology Psychiatry
DX: F33.2 Major depressive disorder, recurrent severe without psychotic features (principal); F12.99 Cannabis use, unspecified with unspecified cannabis-induced disorder; F81.0 Specific reading disorder; Z79.899 Other long term (current) drug therapy
CPT/HCPCS: S9480; 90832; 90834; 90853

== ENCOUNTER 2021-08-23 07:24 | Outpatient (RCR) | payer OTHER, SELFPAY ==
--- NOTE | 2021-08-18 11:15 | BH.SGPN.GN ---
Behaviors/Verbalizations/Mental Status: []Pt alert and oriented, neatly dressed and groomed. Eye contact good. Motor activity appropriate. Speech within normal limits. Affect constricted, mood calm. Thoughts linear, logical, no signs of hallucinations or delusions Client Response/Progress/Benefit: []Pt responded well to session AEB pt listening attentively to others and providing input during group discussion on the pay offs and costs of the different communication styles. Pt reported he is mostly passive which leads to pt having choices made for him and going along with what others want. Attentive during psychoeducation on interpersonal DBT skill ALVINA. Pt set a goal to work on giving his opinion when asked rather than ?just giving in because it?s easier.? Pt seemed to benefit from increasing awareness of healthy strategies to improve communication. Pt will continue IOP tx to reduce negative thinking, improve daily functioning, and increase self-esteem. Narrative Note: []
--- NOTE | 2021-08-23 10:13 | BH.SGPN.GN ---
Behaviors/Verbalizations/Mental Status: []Client alert and oriented, casually dressed and groomed. Eye contact good. Motor activity appropriate. Speech within normal limits. Affect flat, mood dysthymic. Thoughts linear, logical, no signs of hallucinations or delusions. Client Response/Progress/Benefit: [] Client responded well to session AEB providing input when prompted, taking notes, and listening attentively to others. Client participated in activity illustrating how perspective affects mental health. Client participated in group discussion on what shapes our perspective, contributing environment as an example. Client appeared connected to psychoeducation on how our thoughts and attitude can become ?lenses? that we see the world through. Participated in group discussion reviewing how these lenses affect mental health treatment, nodding in agreement that a negative perspective could cause someone to be more likely to give up and assume treatment wont work. Shared his current perspective as overall hopeful, noting that this continues to be a struggle at times though and expressed feeling tired today which is impacting overall mood as well. Client appeared to benefit from increased awareness of current perspective and gaining knowledge of perspective and how mental health can impact or be impacted by one?s perspective. Will continue IOP treatment to improve consistency of depression management skills, prevent decompensation, and maintain stability. Narrative Note: []
--- NOTE | 2021-08-23 11:15 | BH.SGPN.GN ---
Behaviors/Verbalizations/Mental Status: []Pt alert and oriented, neatly dressed and groomed. Eye contact good. Motor activity appropriate. Speech within normal limits. Affect constricted, mood tired. Thoughts linear, logical, no signs of hallucinations or delusions. Client Response/Progress/Benefit: []Pt was attentive and contributed in small and larger group discussion. Pt completed strengths exploration worksheet and identified personal strengths to include honesty, empathy, self-control, and modesty. Pt shared that working to recognize these personal strengths more consistently will help improve pt?s mood and increase self-worth. Shared wanting to focus on fostering personal strengths by starting an accomplishment journal in addition to his usual journaling. Also identified barriers for acknowledging and using strengths. Benefited from identifying personal strengths and strategies for enhancing use of identified strengths. Pt to continue IOP tx to reduce negative thinking, improve mood stability, and improve self-esteem. Narrative Note: []
--- NOTE | 2021-08-23 11:49 | PCM.BH.PN ---
Progress Note Progress Note: History of Present Illness/Interim History: [] The patient is a 21-year-old male who is seen in follow-up at the [facility] behavioral health IOP program. I last saw the patient 3 weeks ago and at that time blood work was pending and his prescription for vitamin D replacement was sent in. Patient has been consistent and engaged in the IOP program. He states he feels much less depressed and has no fleeting suicidal ideation anymore. He has occasional passive thoughts of but they occur much less often than before. He feels much more hopeful at times and only has rare episodes of feeling hopelessness. He is still getting outdoors and he is actually going to try fishing again with some friends and he already has done this once and enjoyed it. His energy level is good during the day and his sleep is much improved he is sleeping all night now. He denies plan for suicide, active suicidal ideation, passive suicidal ideation, hallucinations, delusions or homicidal ideation. Current Psychiatric Medications: [] Pristiq 25 mg daily possibly increased to 50 mg patient is uncertain. He discontinued his Prozac little over 3 weeks ago and tolerated that well. Mental Status Examination: [] Patient is a 21-year-old male who appears normal for stated age and is casually dressed and groomed with good hygiene. He is ambulatory with a normal gait and has no psychomotor agitation or retardation. He is cooperative and pleasant during the interview. Eye contact is good and speech is normal rate and rhythm and fluent with no pressure. Mood is mildly depressed. Affect is constricted mildly. Thought process is goal-directed and organized. Thought content: There is still evidence of occasional passive thoughts of . There is no evidence of fleeting suicidal ideation, active suicidal ideation, plan for suicide, homicidal ideation, hallucinations or delusions. Reality testing is intact. Judgment is intact. Insight is good. Impulsivity is moderate. Diagnoses: [] 1. Major depressive disorder, recurrent, severe without psychosis 2. History of marijuana use disorder 3. Specific learning disability reading disorder 4. Career and work issues Plan: [] The patient will continue the IOP program at [facility] as the structure, support, education, and group therapy will hopefully prevent worsening of the patient's symptoms which might require hospitalization. The patient felt safe during the interview and if it anytime he does not feel safe he will let us know or go to the emergency room. The risks, options, possible complications and side effects of the medications were again discussed with the patient and he understands and accepts these. Prescription was sent in for Pristiq 50 mg p.o. daily with refills given. The patient agrees to continue exercising and applying the skills he is learning in the IOP program. He will continue his vitamin D prescription. He will continue to follow-up with his outpatient psychiatric and medical providers and I will see the patient in follow-up in 1 to 2 weeks.
--- NOTE | 2021-08-25 10:10 | BH.SGPN.GN ---
Behaviors/Verbalizations/Mental Status: []Pt alert and oriented, casually dressed and groomed. Eye contact good. Motor activity appropriate. Speech within normal limits. Affect congruent, mood euthymic. Thoughts linear, logical, no signs of hallucinations or delusions. Client Response/Progress/Benefit: []Pt was an active participant in group discussions. Attentive during psychoeducation on 4 types of conflict styles (Competing, Collaborating, Avoiding, and Accommodating). Worked with group to define conflict and identify how conflict is helpful. With peers identified barriers to addressing or managing conflict which included: fear of upsetting others, fear of the outcome, and feeling uncomfortable. Pt believes he uses the accommodating style the most as it is ?easier to give in to others.? Pt shared this leads to ?me giving others? opinions more value.? Benefited from group due to increase insight and awareness of benefits to conflict, conflict styles, and obstacles to managing conflict. Will continue in IOP to further improve mood stability and increase self-confidence. Narrative Note: []
--- NOTE | 2021-08-25 11:15 | BH.SGPN.GN ---
Behaviors/Verbalizations/Mental Status: []Pt alert and oriented, casually dressed and groomed. Eye contact good. Motor activity appropriate. Speech within normal limits. Affect congruent, mood euthymic. Thoughts linear, logical, no signs of hallucinations or delusions. Client Response/Progress/Benefit: []Pt engaged in session AEB contributing to discussion and engaging in activity. Pt did well to review current conflict style and its impact on mental health. Attentive and taking notes during discussion on strategies for more effectively managing conflict in personal life. Pt participated in activity and did well to be assertive and collaborating. Pts given handout on fair fighting rules. Pt wants to improve his ability to manage conflict by working on discussing one topic at a time when he approaches conflict. Appeared to benefit from gaining strategies to help pt better manage conflict. Will continue IOP tx to reinforce healthy coping skills and further improve mood stability. Narrative Note: []
--- NOTE | 2021-08-25 14:00 | BH.MDN_ITS ---
Multi-Disciplinary Note - Note 45-min Individual Time Started:: 12:07 Date: 08/25/21 Purpose of session/treatment goals addressed:: To address progress, discharge options, and help reduce anxiety about pt's future through creating a decisional balance. Eye Contact:: Good Motor Activity:: Appropriate Appearance:: Neat Speech:: Appropriate Mood:: Euthymic Affect:: Congruent Thoughts:: Linear, Logical, No evidence of hallucinations/delusions noted Staff Interventions:: discharge planning, strengths perspective, other - decisional balance Client Response:: Pt responded well to session, open to meeting with therapist. Pt reports he is still feeling much better and pt is looking forward to his vacation next week. Pt will not be at [facility] next week because of vacation and plans to discharge the following week. Pt and his mother are still working on getting pt an outpatient therapist. Pt reports his outlooks has improved and his thought patterns of self and his future have become more optimistic. Pt stated his biggest stressor right now is that he still does not know what he wants to do for a career. 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 Pt receptive to completing a decisional balance exercise looking at the pros and cons for both options. Pt did well with this and pt receptive to spending time at home reflecting on what are his non-negotiables and what cons he is unwilling to accept. Risks/Concerns:: Pt denies any suicidal ideations, plan, or intent as of 08/25/21. Pt reports he still has occasional passive thoughts of , but this is much less than when pt started PHP. Progress Toward Goals/Plan:: Pt continues to respond well to IOP tx and he is making progress towards his goals. Pt self-reports a more hopeful outlook, improved motivation and thinking patterns, and reduced depressive symptoms. Pt denies any SI and reports only occasional thoughts of . Pt has been consistent with attendance, homework, and pt reports he has been using healthy coping skills outside of IOP. Pt will be gone next week due to vacation. Pt will return to [facility] on 09/04/21 and he will discharge that week as well. Pt can benefit from one more week of IOP to reinforce healthy coping skills and establish aftercare. Time Stopped:: 12:45
--- NOTE | 2021-09-04 09:00 | BH.SGPN.GN ---
Behaviors/Verbalizations/Mental Status: []Pt alert and oriented, neatly dressed and groomed. Eye contact good. Motor activity appropriate. Speech within normal limits. Affect congruent, mood euthymic. Thoughts linear, logical, no signs of hallucinations or delusions. Reviewed pt?s symptom tracker, no risk for suicidal ideation, plan, or intent as of 09/04/21 Client Response/Progress/Benefit: []Pt responded well to session, attentive and contributing. Pt reports feeling pleased this morning as pt shared he did not think he would make it through all of PHP and IOP tx. Pt stated the experience was very positive for him and he now has a better plan for the future. Pt shared hope with group members stating, I genuinely feeling better and I applied the skills to my life. Pt shared he is still stressed about what he wants to do next with his life, but he has a better idea. Pt appeared to benefit from reflecting on progress and pt will discharge later this week. Can benefit from additional IOP days to reinforce healthy coping skills and establish aftercare. Narrative Note: []
--- NOTE | 2021-09-04 10:00 | BH.SGPN.GN ---
Behaviors/Verbalizations/Mental Status: [] Eye contact is good. Motor activity is appropriate. Appearance is casual. Speech is Appropriate. Mood is euthymic. Affect is full. Thoughts are linear and logical. No evidence of psychosis. Client Response/Progress/Benefit: [] Pt was quiet during interactive group discussions however was attentive during psychoeducation on the six types of boundaries (physical, emotional, intellectual, sexual, time, and material) AEB note-taking. Also attentive while peers worked together on defining what a boundary is in mental health, challenges to setting boundaries and benefits to setting boundaries. Group discussed the mental health benefits to establishing boundaries at work, school, and home and pt was attentive as well AEB by note-taking. Pt benefited from increased awareness and insight on the importance/benefit to setting health boundaries. Will continue in IOP to maintain gains and prevent decompensation. Narrative Note: []
--- NOTE | 2021-09-04 11:05 | BH.SGPN.GN ---
Behaviors/Verbalizations/Mental Status: []Client alert and oriented, casually dressed and appropriately groomed. Eye contact good. Motor activity WNL.? Speech within normal limits. Affect constricted, mood anxious and euthymic. Thoughts linear and intact. no signs of delusions or hallucinations. Client Response/Progress/Benefit: []Client responded well to session AEB listening attentively to peers and taking notes throughout. Client remained an active listener and nodding throughout psychoeducation on different boundary setting styles. Reports connecting most with styles of porous and rigid depending on the environment and who he is trying to set a boundary with. Participated in small group discussion brainstorming various strategies for improving healthy personal boundaries. Client reports wanting to begin using skill of starting to set ?small, easy boundaries? with others to improve overall ability to establish and maintain healthy boundaries. Seemed to benefit from increased awareness of how different boundary styles can impact mental health. Will continue IOP tx to increase consistent application of skills, increase positive thinking and prevent decompensation. Narrative Note: []
--- NOTE | 2021-09-04 12:25 | BH.MDN ---
Multi-Disciplinary Note - Note 30-min Individual Time Started:: 12:00 Date: 09/04/21 Purpose of session/treatment goals addressed:: To review pt's progress in IOP and process any current stressors. Another goal was to discuss discharge and aftercare plan. Eye Contact:: Good Motor Activity:: Appropriate Appearance:: Neat Speech:: Appropriate Mood:: Euthymic Affect:: Congruent Thoughts:: Linear, Logical, No evidence of hallucinations/delusions noted Staff Interventions:: discharge planning, strengths perspective, other - Pt agrees to call an outpatient provider by Saturday to set up an appointment. Pt was provided a list of therapists in his area. Client Response:: Pt responded well to session, open to meeting with therapist. Pt shared he had a good time on vacation with his girlfriend and mom, but pt got sick. Pt stated he was still able to enjoy his time, but pt did recognize that being sick made him more vulnerable to his old thinking patterns. Pt acknowledges that he will get negative thinking and mild depressive symptoms throughout his life, but pt reports being much better at coping. Pt reflected on his progress since starting IOP which includes being more hopeful about the future, increased self-esteem and acknowledgment of his place in the world, less negative thinking, and improved functioning. Pt completed his maintenance plan from last session, so pt has a concrete plan he can follow if he starts to experience any warning signs in the future. Pt has a list of outpatient providers for counseling, but pt still needs to call and setup an appointment. Pt will do this by Saturday and pt would like to do IOP aftercare. Risks/Concerns:: Pt denies any suicidal ideations, plan, or intent. Pt denies any thoughts of . Pt is future oriented and hopeful. Progress Toward Goals/Plan:: Pt has made significant progress since starting IOP as noted above. Pt is no longer suicidal or has passive thoughts of . Pt is planning for his future and looking forward to things in life. Pt continues to be stressed about choosing his next steps in life (school or work) but he is more confident in his ability to cope. Pt will continue IOP tx for two more days to reinforce healthy coping skills and establish aftercare. Time Stopped:: 12:20
--- NOTE | 2021-09-06 09:04 | BH.SGPN.GN ---
Behaviors/Verbalizations/Mental Status: []Pt alert and oriented, casually dressed and groomed. Eye contact good. Motor activity appropriate. Speech within normal limits. Affect congruent, mood anxious and euthymic. Thoughts linear, logical, no signs of hallucinations or delusions. Reviewed pt?s symptom tracker, no risk for suicidal ideation, plan, or intent as of 09/06/21 Client Response/Progress/Benefit: []Pt responded well to session, attentive and receptive to feedback. Pt reports feeling neutral this morning as pt has not been awake long. Reports he is overall feeling calm and more confident in his ability to maintain the gains he has made since beginning tx. Identified thought challenging and deep breathing as skills that have been most helpful in continuing to reduce his anxiety and improve ability to manage sx. Shared looking forward to returning to a more consistent schedule upon successfully d/c from tx at the end of this week. Pt appeared to benefit from connecting with peers and reflecting upon areas of progress. Will continue IOP tx as pt finalizes aftercare plans to promote continued mood stability and use of healthy coping skills. Narrative Note: []
--- NOTE | 2021-09-06 10:10 | BH.SGPN.GN ---
Behaviors/Verbalizations/Mental Status: []Pt alert and oriented, neatly dressed and groomed. Eye contact good. Motor activity appropriate. Speech within normal limits. Affect constricted, mood euthymic. Thoughts linear, logical, no signs of hallucinations or delusions. Client Response/Progress/Benefit: []Pt engaged during session AEB Pt contributing thoughts throughout discussion and completing worksheet. Connected with discussion on crisis and how coping with external crises by using unhealthy coping skills could result in a personal crisis. Group reflected on the importance of having awareness of personal warning signs to prevent reaching crisis point. Group identified potential warning signs for crisis and Pt completed the personal warning signs worksheet. Pt identified personal crisis warning signs to include: apathy, over-using distractions, and isolating/sleeping more. Pt benefited by increasing awareness of what leads to crisis and personal warning signs. Pt will continue IOP tx for one more day to reinforce healthy coping skills and review aftercare plan. Narrative Note: []
--- NOTE | 2021-09-08 08:20 | BH.IGGP_ITS ---
Aftercare Plan - Demographics Treatment End Date:: 09/08/21 Psychiatrist:: Lia Mason Psychiatrist Office #:: [phone] [facility] [place] Therapist:: Latrice Frost Therapist Phone #:: [phone] - Plan Details Progress/Aftercare Plan Details:: Pt responded well to IOP tx and he was consistent throughout his time in IOP. Pt was consistent with homework and he frequently reported using coping skills outside of IOP. When Pt started IOP tx he was feeling depressed, suicidal, not enjoying life, and feeling hopeless. Pt was struggling with many negative thoughts and self-talk. Now, Pt is able to challenge his perspective, use healthy coping skills consistently, and look forward to his future. Pt has been more active physically and socially which has helped pt cope and feel connected. Pt also reports less negative self-talk and a better understanding of the core beliefs that have reinforced depression. Pt?s overall DSM-5 scores decreased by 65%, depression decreased by 71%, anxiety decreased by 33%, and anger decreased by 50%. Strategies for Success:: 1. Continue to use positive self-talk when you feel down, not enough, or experience a stressor. 2. Remember thoughts are thoughts NOT facts! Just because we think/feel a certain way doesn?t mean we are our thoughts or that those thoughts are true! 3. self-compassion and remember to keep building evidence for your desired core beliefs. 4. Opposite action! Continue to push yourself, spend time with friends/family when you want to isolate or face what is making your anxious 5. reflect on your emotions and communicate with supports 6. Stay active! This could mean physically, productively, or socially. 7. Challenge your negative thoughts and be proactive with thought challenging-don't wait until it gets bad 8. Maintenance! Self-care is important and so is checking in with yourself each day. 9. keep track of your wins and give yourself credit! - Appointments Appointments/Referrals to Other Services:: 1. IOP aftercare start date TBD 2. [facility]i at [facility] starting the end of September for individual counseling. 3. Psych PA Eunice at [place] [id number] - Medications Home Medications: Home Medications amlodipine 5 mg tablet (Norvasc) 5 mg PO DAILY 07/26/21 fluoxetine 20 mg capsule (Prozac) 20 mg PO DAILY 07/26/21 omeprazole 40 mg capsule,delayed release 40 mg PO DAILY 07/26/21 ergocalciferol (vitamin D2) 1,250 mcg (50,000 unit) capsule (Vitamin D2) 1,250 mcg PO QWEEK 3 months #13 caps 08/02/21 desvenlafaxine succinate 50 mg tablet,extended release 24 hr (Pristiq) 50 mg PO DAILY 30 days #30 tabs 08/23/21
--- NOTE | 2021-09-08 09:05 | BH.SGPN.GN ---
Behaviors/Verbalizations/Mental Status: [] Eye contact is good. Motor activity is appropriate. Appearance is casual. Speech is Appropriate. Mood is euthymic. Affect is full. Thoughts are linear and logical. No evidence of psychosis. Reviewed daily check in sheet and pt reports 1/5 for suicidal thoughts and 0/5 for intent. This is below baseline. Client Response/Progress/Benefit: [] Pt participated at times during the group discussion. Daily symptom tracker notes 1/5 for depression and anxiety. Shared with the group that today is his last day in [facility]. Talked about his progress in the program. The topic and skills that he found most beneficial was thought-challenging stating that in the past he would simply accept his negative automatic thoughts as true. My mood is generally better, however I know I still have work to do. He also noted the benefits of talking about things and getting support from the groups. Helpful to know I wasn't alone. Progress noted. Plan is to discharge from [facility]. Narrative Note: []
--- NOTE | 2021-09-08 10:10 | BH.SGPN.GN ---
Behaviors/Verbalizations/Mental Status: [] Eye contact is good. Motor activity is appropriate. Appearance is casual. Speech is Appropriate. Mood is euthymic. Affect is full. Thoughts are linear and logical. No evidence of psychosis Client Response/Progress/Benefit: [] Pt participated at times during the group discussions and experiential activity. Attentive during psychoeducation. Group had an interactive discussion in which they provided insight on the definition of a pitfall which was things that we engage in that keep us stuck and away from a healthier path. Group identified types of pitfalls in mental health such as isolation, not asking for help, avoiding, not taking medications, avoiding responsibilities, not setting boundaries, and self-sabotage. Pt played an active role in the experiential activity and was able to make connections between the activity and today's topic. Benefited from increased insight on pitfalls and how they can impact mental health. Plan is to discharge pt from [facility] today. Narrative Note: []
--- NOTE | 2021-09-08 11:10 | BH.SGPN.GN ---
Behaviors/Verbalizations/Mental Status: []Pt alert and oriented, casually dressed and groomed. Eye contact good. Motor activity appropriate. Speech within normal limits. Affect congruent, mood anxious and euthymic. Thoughts linear, logical, no signs of hallucinations or delusions. Client Response/Progress/Benefit: []Pt receptive of session, engaged throughout AEB pt actively listening and contributing to discussion, as well as taking notes.? Pt completed worksheet identifying personal pitfalls impacting mental health progress. Pt identified the following pitfalls: negative thoughts, self-doubt, procrastination, apathy, and avoidance. Group worked together to identify different coping skills to help manage pitfalls. Pt selected the following coping skills to help with pitfalls: thought challenging, getting outside, meditation, opposite action, and using his supports. Pt wants to work on managing pitfalls by setting small goals focused on improving consistent use of thought challenging skills. Benefited from identifying personal pitfalls and strategies to overcome these pitfalls. Will d/c on this date given progress made and continue with outpatient tx to further improve healthy thought patterns, mood stability, and increase consistent use of healthy coping behaviors. Narrative Note: []
--- NOTE | 2021-09-08 13:07 | BH.DS_ITS ---
Discharge Summary - Demographics Date of Admission:: 08/02/21 Discharge Date: 09/08/21 Presenting Problems at Admission:: Pt is a 21-year-old male with a history of MDD and cannabis use disorder. Pt referred to [facility] by [place] [id number] and his mother following an episode of suicidal ideations with a plan to shoot himself in his sleeping bag in the [place]. Pt denies any previous history of attempts, but reports having suicidal ideations since high school. At admission, pt reported symptoms had been worsening over the past few months, but about six weeks ago, pt told his parents his medications were not working. Pt reported feeling like he is going through the motions and not finding any alexi in life. Pt endorsed a depressed mood, anhedonia, hopelessness, worthlessness, and lack of energy. Pt also endorsed ruminations and feels like he is not good enough for his relati onships. Discharge Diagnoses:: Major depressive disorder, recurrent, severe without psychosis F33.2; History of Cannabis use disorder Reason for Discharge:: Pt has met his treatment goals AEB his reduction in scores and self-report of overall improved mood and functioning. Pt no longer meets criteria for [facility] level of care. - Treatment Progress During Treatment & Response: Pt responded well to IOP tx and he was consistent throughout his time in IOP. Pt was consistent with homework and he frequently reported using coping skills outside of IOP. When Pt started IOP tx he was feeling depressed, suicidal, not enjoying life, and feeling hopeless. Pt was struggling with many negative thoughts and self-talk. Now, Pt is able to challenge his perspective, use healthy coping skills consistently, and look forward to his future. Pt has been more active physically and socially which has helped pt cope and feel connected. Pt also reports less negative self-talk and a better understanding of the core beliefs that have reinforced depression. Pt?s overall DSM-5 scores decreased by 65%, depression decreased by 71%, anxiety decreased by 33%, and anger decreased by 50%. Issues Still to be Addressed:: Pt can benefit from ongoing counseling and medication management to promote gains and to reinforce healthy coping skills. Pt can continue to work on strengthening healthier core beliefs and increasing self-confidence. Pt also has stress about his future career and life plans which is normal for pt's stage in life. Discharge Recommendations/Instructions:: Pt will follow up with his psych PA at [place] [id number]. Pt could not recall the date of his next follow up appointment, but he believes he has one in the next month. Pt has an appointment at [facility] on 10/12/21. Pt also will start IOP aftercare start date TBD. Discharge Handout: Complete Discharge Handout with client on aftercare options and continuity of care.
== END 2021-09-08 12:08 | disposition home or self-care (01) ==
LOC: BHIOP 07:24
PROVIDERS: PCP Physician Assistant; Referring Provider Psychiatry & Neurology Psychiatry; Visit Provider Psychiatry & Neurology Psychiatry
DX: F33.2 Major depressive disorder, recurrent severe without psychotic features (principal); F12.99 Cannabis use, unspecified with unspecified cannabis-induced disorder; F81.0 Specific reading disorder
CPT/HCPCS: S9480; 90832; 90834; 90853